=== PATIENT | male | born 1980 | race Caucasian/White ===

== ENCOUNTER 2020-09-25 09:02 | Emergency (ER) | payer MEDICAID, SELFPAY ==
[2020-09-25 09:18] VITALS: BP 124/91; PULSE 112; RESP 14; TEMP 36.3; O2SAT 98; BMI 32.5
--- NOTE | 2020-09-25 09:29 | US_ITS ---
PROCEDURE: US EXTREMITY RT LIMITED CLINICAL INDICATION: golf size nodule COMPARISON: No exams were available for comparison FINDINGS: Ultrasound is performed of the right groin region. There is mild diffuse edema but no focal fluid collections or masses or adenopathy demonstrated. IMPRESSION: No abscess demonstrated. Mild edema in the right groin subcutaneous tissues Dictated by: Uday Graves MD 09/25/2020 09:59 Uday Graves MD in [place] 09/25/2020 09:59
--- NOTE | 2020-09-25 10:03 | HMH.EDUTC ---
[facility] Disposition Clinical Impression: Inguinal lymphadenopathy Disposition: Home, Self-Care Condition on Discharge: Good Instructions: DI for Lymphadenopathy Additional Instructions: Apply warm wet compresses to the affected site three or four times per day for 15 minutes as tolerated. Take the antibiotics as directed. Follow up with your regular doctor in 3 days for a recheck. GO TO THE ER FOR ANY WORSENING SYMPTOMS OR CONCERNS Prescriptions: Doxycycline Hyclate [Doxycycline 100mg Capsule] 100 mg PO Q12 10 Days #20 cap Transmission Status: Received by [facility] Referrals: Provider,Referral, [Primary Care Provider] - Forms: Work/School Release Time of Disposition: 10:07 Medical Decision Making - Medical Records Medical records reviewed: No: I reviewed the patient's medical records. - Tom Inquiry Pt receiving controlled substance: No Vital Signs: 09/25/20 09:18 09/25/20 10:20 Temperature 97.3 F L 98 F Temperature Source Tympanic Pulse Rate 106 H Pulse Rate [Right] 112 H Respiratory Rate 14 17 Blood Pressure 116/85 Blood Pressure [Right Arm] 124/91 H Blood Pressure Mean [Right Arm] 102 Blood Pressure Source [Right Arm] Automatic Cuff Blood Pressure Position [Right Arm] Sitting 02 Sat by Pulse Oximetry 98 - Lab Data Lab Results 09/25/20 10:19: Urine Color [place], Urine Appearance Clear, Urine pH 5.5, Ur Specific [place] 1.015, Urine Protein 1+, Urine Glucose (UA) Negative, Urine Ketones Negative, Urine Blood 2+, Urine Nitrate Negative, Urine Bilirubin 1+ A, Urine Urobilinogen 1, Ur Leukocyte Esterase Negative Orders (Tests/Meds): ORDERS Category Date Time Status US extremity RT limited Stat Exams 09/25/20 09:29 Taken - US Data US Images: Lower Extremity ED US Reviewed: Yes: I have reviewed the patient's US results, I have viewed radiologist's interpretation [facility] HPI - General Stated complaint: Rt hip/leg pain Time Seen by Provider: 09/25/20 10:03 Mode of Arrival: Ambulatory Source of Information: Patient Limitations: No Limitations Description of Symptoms (Recalled from Triage Doc. by RN): pt c/o upper front thigh/ hip pain. 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 pt has a golf ball size nodule that has popped up and is very painful. HEENT Symptoms (Recalled from RN notes): No Resp Symptoms (Recalled from RN notes): No Skin Symptoms (Recalled from RN notes): No MS Symptoms (Recalled from RN notes): Yes (knot on upper front thigh/hip about the size of a golf ball) Functional Status (Recalled from RN notes): na - History of Present Illness Provider Complaint: He states that for the past 5 days he has had a knot on his right groin area. He states the site is painful when he walks or bends over. He denies any fever/chills. He denies any urinary complaints or known std exposure. - Related Data Previous Rx's Medication Instructions Recorded Doxycycline Hyclate [Doxycycline 100 mg PO Q12 10 Days #20 cap 09/25/20 100mg Capsule] Allergies Allergy/AdvReac Type Severity Reaction Status Date / Time No Known Allergies Allergy Verified 09/25/20 09:28 - Worker's Comp Is this a Worker's Comp case?: No [facility] History - Hepatitis A Screen Drug use history?: No High risk sexual behaviors?: No History of sexually transmitted infection?: No Currently employed?: No Childcare worker?: No Do you have indoor plumbing?: Yes Do you have electricity?: Yes Attestation statement:: This patient has been screened for Hepatitis A risk factors. I have reviewed the patient's past medical history: Yes ROS Obtained: Yes All systems reviewed & no additional complaints - Constitutional Constitutional: Denies chills, Denies fever(s) - Eyes Eyes: Reports system reviewed and no additional complaints, except as docu - ENT Ears, Nose, Mouth, and Throat: Denies sore throat - Cardiovascular Cardiovascular: Denies chest pain - Respiratory
[2020-09-25 10:20] VITALS: BP 116/85; PULSE 106; RESP 17; TEMP 36.6
[2020-09-25 10:23] LABS: Apearance,Urine Clear (Clear); Color,Urine Orange (Yellow); PH,Urine 5.5 (5.0-8.5); Specific Gravity, Urine 1.015 (1.005-1.030)
[2020-09-25 10:24] LABS: Bilirubin,Urine 1+ (Negative); Blood, Urine 2+ (Negative); Glucose,Urine (UA) Negative (Negative); Ketones,Urine Negative (Negative); Protein,Urine 1+ (Negative)
[2020-09-25 10:25] LABS: UTC Leukocyte Esterase,Urine Negative (Negative); UTC Nitrate,Urine Negative (Negative); Urobilinogen,Urine 1 EU/dl (0.2)
== END 2020-09-25 10:26 | disposition home or self-care (01) ==
PROVIDERS: Emergency Provider Nurse Practitioner Family
DX: R22.31 Localized swelling, mass and lump, right upper limb (principal)
CPT/HCPCS: 76882; 81003; 87086; 87491; 87591; 99202; 99212; G0463

== ENCOUNTER 2020-09-28 15:03 | Inpatient (IN) | payer MEDICAID, SELFPAY ==
--- NOTE | 2020-09-28 15:08 | CT_ITS ---
PROCEDURE: CT ABDOMEN PELVIS W CON CLINICAL INDICATION: right groin abscess/mass- extends down right thigh COMPARISON: US US EXTREMITY RT LIMITED from 09/25/2020 TECHNIQUE: IV Contrast: 75ML Isovue 370 Oral Contrast None Axial images obtained with sagittal and coronal reformats. All CT scans at the facility use one or more dose reduction, viz: automated exposure control, ma/kV adjustment per patient size (including targeted exams where dose is matched to indication, i.e. head), or iterative reconstruction technique. FINDINGS: LOWER THORAX: Minimal pleural thickening in the left lung base posterior laterally ABDOMEN & PELVIS: 15 mm gallstone present. No focal liver lesion is evident. The spleen and adrenal glands and pancreas have an unremarkable appearance. No renal or ureteral calculi. No hydronephrosis. No intestinal obstruction or free air. Unremarkable appendix. There is diffuse somewhat heterogeneous increase in soft tissue density in the right inguinal region within the subcutaneous tissues. This is anteromedial to the sartorius muscle and measures 6 cm transverse, 5 cm AP, and extends cephalad caudad for length of approximately 9 cm. The margins are somewhat ill-defined. A well-formed capsule around this lesion is not present by CT criteria. There are few small lymph nodes along the lower margin of this lesion. This does not appear to have yet developed into a well-formed abscess. No gas is evident within the collection. There is some stranding of the subcutaneous soft tissues lateral to this area. This does not extend into the intra-abdominal region. IMPRESSION: 1. Abnormal soft tissue density in the right inguinal region consistent with cellulitis and phlegmonous changes and suspected early abscess development. A well-formed abscess is not yet apparent. There are some small lymph nodes associated with this region 2. Cholelithiasis Dictated by: Uday Graves MD 09/28/2020 16:44 Uday Graves MD in [place] 09/28/2020 16:44
[2020-09-28 15:12] VITALS: BMI 33.2
--- NOTE | 2020-09-28 15:52 | PC.NURSE ---
spoke with dr zacarias regarding surgery consult
--- NOTE | 2020-09-28 16:17 | HMH.HP ---
*Admission Date: 09/28/20 *Chief complaint: right groin pain and swelling *History of present illness: 40 year old male with no significant medical history presented to PCP office to establish care for ED FU on right groin abscess. Reports onset of right groin pain approx 1 weeks ago. States it felt like it was deep like on the bone. In the following days developed redness and swelling of right groin. Seen in the ED on 09/25, UA + blood, otherwise normal, extremity US showed mild tissue swelling no abscess. He was started on doxy and advised to FU with PCP if symptoms worsened. Today, patient reports it keeps getting bigger. + tenderness and pain with ambulation. + erythema. + fevers, states about 101. Denies any loss of appetite, nausea or vomiting. Found to have large approx 8 cm erythematous, warm induration on right groin extending down thigh c/w abscess. Admitted for CT scan, IV antibiotics and surgical consultation. [facility] History I have reviewed the patient's past medical history: Yes *Have you ever received a pneumonia vaccine?: No *Have you received a flu vaccine this season?: No Other Medical History: Reports: Other Other Surgeries: Yes: No Previous Surgery - *Social History Last grade of school completed: High school graduate Smoking Status: Smoker, status unknown Alcohol Intake: never Substance Use Type: unknown Last Used Substance: unknown *Occupational Status:: employed *Travel in the last 8 weeks: None Family Hx:: Cancer, Diabetes Review of Systems - Review of Systems Review of systems:: pertinent systems reviewed and negative unless documented below - Constitutional Reports fever(s) - Integumentary/Breasts Comments: right groin redness/swelling/warmth Meds Home Medications Medication Instructions Recorded Confirmed Type Doxycycline Hyclate [Doxycycline 100 mg PO Q12 10 Days #20 cap 09/25/20 Rx 100mg Capsule] Allergies Allergy/AdvReac Type Severity Reaction Status Date / Time No Known Allergies Allergy Verified 09/25/20 09:28 Exam I & O for Last 24 hours: Intake & Output 09/26/20 09/27/20 09/28/20 09/29/20 11:59 11:59 11:59 11:59 Weight 245 lb Narrative: Alert and oriented x3. RRR. No murmur. No LE edema. No JVD. No cervical LAD. LS clear and equal. ENT exam unremarkable. Abdomen soft and nontender. Normoactive bowel sounds. Right groin with approx 6x8cm erythematous induration, + warmth, erythema extends down medial aspect of thigh approx 6cm, tesicular and penile exam normal. Psych-affect normal. - *Routine HEENT Exam Head: Present: normocephalic Eye: Present: EOMI ENT: Present: mucous membranes moist - *Routine Neck Exam Present: supple - *Routine Respiratory Exam Present: CTA bilaterally - *Routine Cardiovascular Exam Present: RRR - *Routine Abdominal Exam Present: soft - *Routine Rectal Exam Rectal:: other, deferred - *Routine Genitalia Exam Genitalia:: normal male - *Routine Extremities Exam Comments: see above - *Routine Neurological Exam Present: alert, oriented X3 Assessment and Plan (1) Abscess of right groin Status: Acute Category: Medical Code(s): L02.214 - Cutaneous abscess of groin - Assessment and plan all Dx Assessment and Plan for all problems:: [facility] Obtain labs with inflammatory markers, blood cultures, repeat UA/cx due to hematuria on UA earlier this week and CT abd/pelvis. Consult surgery for evaluation. Start Vanc. Oddly, he does not have marked tenderness of the indurated area, will evaluate CT results and treat as indicated.
[2020-09-28 16:19] LABS: Basophils # 0.1 K/mm3 (0-0.2); Basophils % 0.5 % (0.1-2.0); Eosinophils # 0.2 K/mm3 (0.0-0.4); Eosinophils % 0.8 % (0.1-12.0); Hematocrit 43.6 % (42.0-52.0); Hemoglobin 14.8 g/dL (14.1-18.0); Lymphocytes # 2.1 K/mm3 (0.7-4.5); Lymphocytes % 9.5 % (10-50); Mean Corpuscular Hemoglobin 30.4 pg (27.0-31.2); Mean Corpuscular Volume 89.4 fl (80-94); Mean Platelet Volume 7.6 fl (7.4-10.4); Monocytes # 0.9 K/mm3 (0.1-1.0); Monocytes % 4.3 % (1.7-9.3); Neutrophils # 18.3 K/mm3 (1.8-7.8); Neutrophils % 84.8 % (37.0-80.0); Platelet Count 382 K/mm3 (142-424); Red Blood Count 4.88 M/mm3 (4.60-6.20); Red Cell Distribution Width 12.5 % (11.5-17.5); White Blood Count 21.6 K/mm3 (4.8-10.8)
[2020-09-28 16:20] LABS: Chloride 100 mmol/L (98-107); MANUAL DIFFERENTIAL MANUAL DIFFERENTIAL (MANUAL DIFF)
[2020-09-28 16:21] LABS: Potassium 3.8 mmoL/L (3.5-5.1); Sodium 139 mmol/L (136-145)
[2020-09-28 16:23] LABS: Alanine Aminotransferase 61 U/L (12-78); Albumin Level 4.2 g/dl (3.5-5.0); Albumin/Globulin Ratio 1.1 (1.1-1.8); Alkaline Phosphatase 202 U/L (38-126); Anion Gap 16.8 mEq/L (5-15); Aspartate Amino Transferase 32 U/L (17-59); Bilirubin,Total 0.9 mg/dl (0.2-1.3); Blood Urea Nitrogen 20 mg/dl (9-20); Calcium 9.9 mg/dl (8.4-10.2); Carbon Dioxide 26 mmol/L (22.0-30.0); Creatinine Clearance Estimated 156 mL/min (50-200); Estimated Glomerular Filt Rate 83 ml/min (>60); GFR (African American) 101 ML/MIN (>60); Glucose 108 mg/dl (74-100); Total Protein,Serum 8.2 g/dl (6.3-8.2)
[2020-09-28 16:29] LABS: C-Reactive Protein 185.7 mg/L (0-4)
--- NOTE | 2020-09-28 16:34 | PC.NURSE ---
Pt arrived to the floor at this time.
[2020-09-28 16:38] LABS: Eosinophils % 1 % (0-3); Lymphocytes % 9 % (10-50); Monocytes % 10 % (2-9); Neutrophils % 75 % (42-76); Platelet Estimate Normal; RBC Morphology Normal; Total Cells Counted 100
[2020-09-28 16:42] LABS: Erythrocyte Sedimentation Rate 14 mm/hr (0-15)
--- NOTE | 2020-09-28 16:46 | HMH.PHACONS ---
- Pharmacy Consult Date: 09/28/20 Time: 16:46 Referring provider: DR. FARRAR Reason for Consult:: VANCOMYCIN DOSING Allergies and ADEs:: Allergies Allergy/AdvReac Type Severity Reaction Status Date / Time No Known Allergies Allergy Verified 09/25/20 09:28 Home Medications:: Home Medications Medication Instructions Recorded Confirmed Type Doxycycline Hyclate [Doxycycline 100 mg PO Q12 10 Days #20 cap 09/25/20 Rx 100mg Capsule] Height: 1.83 m Weight: 111.13 kg Laboratory Results:: Laboratory Results - last 24 hr 09/28/20 16:05: WBC 21.6 H*, RBC 4.88, Hgb 14.8, Hct 43.6, MCV 89.4, MCH 30.4, MCHC 34.0, RDW 12.5, Plt Count 382, MPV 7.6, Neut % (Auto) 84.8 H, Lymph % (Auto) 9.5 L, [place] % (Auto) 4.3, Eos % (Auto) 0.8, Baso % (Auto) 0.5, Neut # (Auto) 18.3 H, Lymph # (Auto) 2.1, [place] # (Auto) 0.9, Eos # (Auto) 0.2, Baso # (Auto) 0.1, Total Counted 100, Neutrophils % (Manual) 75, Band Neutrophils % 2.0, Lymphocytes % (Manual) 9 L, Monocytes % (Manual) 10 H, Eosinophils % (Manual) 1, Metamyelocytes % 3.0 H, Platelet Estimate Normal, RBC Morphology Normal 09/28/20 16:05: Sodium 139, Potassium 3.8, Chloride 100, Carbon Dioxide 26, Anion Gap 16.8 H, BUN 20, Creatinine 1.00, Estimated Creat Clear 156, Estimated GFR 83, Est GFR ( Amer) 101, Glucose 108 H, Calcium 9.9, Total Bilirubin 0.9, AST 32, ALT 61, Alkaline Phosphatase 202 H, Total Protein 8.2, Albumin 4.2, Globulin 4.0 H, Albumin/Globulin Ratio 1.1 09/28/20 16:05: ESR 14 09/28/20 16:05: C-Reactive Protein 185.7 H Assessment and Plan - Assessment and plan all Dx Assessment and Plan for all problems:: BASED ON PATIENT FACTORS, RECOMMEND VANCOMYCIN 2250 MG IV Q12H. PHARMACY WILL FOLLOW DAILY AND ADJUST APPROPRIATE.
[2020-09-28 17:55] VITALS: BP 118/58; PULSE 90; RESP 18; TEMP 37.3; O2SAT 99; BMI 32.8
[2020-09-28 18:30] VITALS: PULSE 90; O2SAT 99
[2020-09-28 20:00] VITALS: BP 114/55; PULSE 89; RESP 16; TEMP 37.4; O2SAT 98
--- NOTE | 2020-09-28 20:26 | HMH.GSCON ---
*Admission Date: 09/28/20 *Reason for consult:: Right groin abscess *History of present illness: This is a 40-year-old gentleman seen in consultation from the service of Dr. Montague for evaluation regarding a right groin abscess. Please see HPI from admission history and physical forwarded below. Forwarded from admission history and physical: 40 year old male with no significant medical history presented to PCP office to establish care for ED FU on right groin abscess. Reports onset of right groin pain approx 1 weeks ago. States it felt like it was deep like on the bone. In the following days developed redness and swelling of right groin. Seen in the ED on 09/25, UA + blood, otherwise normal, extremity US showed mild tissue swelling no abscess. He was started on doxy and advised to FU with PCP if symptoms worsened. Today, patient reports it keeps getting bigger. + tenderness and pain with ambulation. + erythema. + fevers, states about 101. Denies any loss of appetite, nausea or vomiting. Found to have large approx 8 cm erythematous, warm induration on right groin extending down thigh c/w abscess. Admitted for CT scan, IV antibiotics and surgical consultation. Review of Systems - Constitutional Denies chills - Eyes Denies change in vision - ENT Denies difficulty swallowing - *Cardiovascular Denies chest pain - *Respiratory Denies cough - *Gastrointestinal Denies abdominal pain - *Genitourinary Denies blood in urine - *Musculoskeletal Denies muscle weakness - Integumentary/Breasts Reports new lesions - *Neurologic Denies dizziness - Psychiatric Denies anxiety - Endocrine Denies cold intolerance - Hematologic/Lymphatic Denies easy bleeding - Allergic/Immunologic Denies hives [facility] History *Have you ever received a pneumonia vaccine?: No *Have you received a flu vaccine this season?: No Other Medical History: Reports: Other Other Surgeries: Yes: No Previous Surgery - *Social History Last grade of school completed: High school graduate Smoking Status: Smoker, status unknown Alcohol Intake: never Substance Use Type: unknown Last Used Substance: unknown *Occupational Status:: employed *Travel in the last 8 weeks: None Family Hx:: Cancer, Diabetes Meds Home Medications Medication Instructions Recorded Confirmed Type Doxycycline Hyclate [Doxycycline 100 mg PO Q12 10 Days #20 cap 09/25/20 Rx 100mg Capsule] Allergies Allergy/AdvReac Type Severity Reaction Status Date / Time No Known Allergies Allergy Verified 09/25/20 09:28 Exam Vital signs and Labs for Last 24 Hours: Temp Pulse Resp BP Pulse Ox 99.2 F 90 18 118/58 L 99 09/28/20 17:55 09/28/20 17:55 09/28/20 17:55 09/28/20 17:55 09/28/20 17:55 Laboratory Results - last 24 hr 09/28/20 16:05: WBC 21.6 H*, RBC 4.88, Hgb 14.8, Hct 43.6, MCV 89.4, MCH 30.4, MCHC 34.0, RDW 12.5, Plt Count 382, MPV 7.6, Neut % (Auto) 84.8 H, Lymph % (Auto) 9.5 L, [place] % (Auto) 4.3, Eos % (Auto) 0.8, Baso % (Auto) 0.5, Neut # (Auto) 18.3 H, Lymph # (Auto) 2.1, [place] # (Auto) 0.9, Eos # (Auto) 0.2, Baso # (Auto) 0.1, Total Counted 100, Neutrophils % (Manual) 75, Band Neutrophils % 2.0, Lymphocytes % (Manual) 9 L, Monocytes % (Manual) 10 H, Eosinophils % (Manual) 1, Metamyelocytes % 3.0 H, Platelet Estimate Normal, RBC Morphology Normal 09/28/20 16:05: Sodium 139, Potassium 3.8, Chloride 100, Carbon Dioxide 26, Anion Gap 16.8 H, BUN 20, Creatinine 1.00, Estimated Creat Clear 156, Estimated GFR 83, Est GFR ( Amer) 101, Glucose 108 H, Calcium 9.9, Total Bilirubin 0.9, AST 32, ALT 61, Alkaline Phosphatase 202 H, Total Protein 8.2, Albumin 4.2, Globulin 4.0 H, Albumin/Globulin Ratio 1.1 09/28/20 16:05: ESR 14 09/28/20 16:05: C-Reactive Protein 185.7 H I & O for Last 24 hours: Intake & Output 09/26/20 09/27/20 09/28/20 09/29/20 11:59 11:59 11:59 11:59 Intake Total 0 / 0 Balance 0 / 0 Weight 242 lb 5 oz - C
[2020-09-29] VITALS (20 sets, daily range): BP systolic 106–143; BP diastolic 57–76; PULSE 50–77; RESP 16–18; TEMP 36.7–37.7; O2SAT 92–99; BMI 32.9
[2020-09-29 00:17] LABS: Microscopic,Cath URINE MICROSCOPIC (MICROSCOPIC)
[2020-09-29 00:22] LABS: Appearance,Urine/Cath CLEAR (Clear); Blood, Urine/Cath TRACE-I (Negative); Color,Urine/Cath YELLOW (Yellow); Glucose,Urine/Cath (UA) Negative (Negative); Ketones,Urine/Cath Negative (Negative); Leukocyte Esterase,Cath Negative (Negative); Nitrate,Cath Negative (Negative); PH,Urine/Cath 5.5 (5.0-8.5); Protein,Urine/Cath TRACE (Negative); Specific Gravity, Urine/Cath >= 1.030 (1.005-1.030)
[2020-09-29 00:38] LABS: Bilirubin,Cath Negative (Negative)
[2020-09-29 00:43] LABS: Bacteria,Urine/Cath TRACE /lpf; RBC,Urine/Cath Occasional # /hpf (0-3); WBC,Urine/Cath Occasional #/hpf (0-3)
--- NOTE | 2020-09-29 04:46 | PC.NURSE ---
Patient alert and oriented times 4. Patient found sleep difficult this shift. Patient states i slept about and hour . Patient did not have any issues with pain and did not request any pain medication. Patient has been administered ABx X 3. Patient is scheduled for I and D Right groin 09/30/2019. Consents signed. Patient in no acute distress, will continue to monitor.
--- NOTE | 2020-09-29 06:31 | PC.NURSE ---
Pt went to Surgery at 0630 accompanied by ANSHUL Sibley. Pt VSS and no acute distress.
--- NOTE | 2020-09-29 06:52 | P.PN_ITS ---
Subjective Patient reports: no new complaints Progress Note: A&P (1) Abscess of right groin Status: Acute Assessment and plan: Continue antibiotics as per primary service Incision and drainage/debridement this morning Exam Vital signs and Labs for Last 24 Hours: Temp Pulse Resp BP Pulse Ox 99.9 F H 70 16 116/57 L 92 L 09/29/20 03:42 09/29/20 03:42 09/29/20 03:42 09/29/20 03:42 09/29/20 03:42 Laboratory Results - last 24 hr 09/28/20 16:05: WBC 21.6 H*, RBC 4.88, Hgb 14.8, Hct 43.6, MCV 89.4, MCH 30.4, MCHC 34.0, RDW 12.5, Plt Count 382, MPV 7.6, Neut % (Auto) 84.8 H, Lymph % (Auto) 9.5 L, [place] % (Auto) 4.3, Eos % (Auto) 0.8, Baso % (Auto) 0.5, Neut # (Auto) 18.3 H, Lymph # (Auto) 2.1, [place] # (Auto) 0.9, Eos # (Auto) 0.2, Baso # (Auto) 0.1, Total Counted 100, Neutrophils % (Manual) 75, Band Neutrophils % 2.0, Lymphocytes % (Manual) 9 L, Monocytes % (Manual) 10 H, Eosinophils % (Manual) 1, Metamyelocytes % 3.0 H, Platelet Estimate Normal, RBC Morphology Normal 09/28/20 16:05: Sodium 139, Potassium 3.8, Chloride 100, Carbon Dioxide 26, Anion Gap 16.8 H, BUN 20, Creatinine 1.00, Estimated Creat Clear 156, Estimated GFR 83, Est GFR ( Amer) 101, Glucose 108 H, Calcium 9.9, Total Bilirubin 0.9, AST 32, ALT 61, Alkaline Phosphatase 202 H, Total Protein 8.2, Albumin 4.2, Globulin 4.0 H, Albumin/Globulin Ratio 1.1 09/28/20 16:05: ESR 14 09/28/20 16:05: C-Reactive Protein 185.7 H 09/29/20 00:03: Urine Color Yellow, Urine Appearance Clear, Urine pH 5.5, Ur Specific [place] >= 1.030, Urine Protein Trace, Urine Glucose (UA) Negative, Urine Ketones Negative, Urine Blood Trace-i, Urine Nitrate Negative, Urine Bilirubin Negative, Urine Urobilinogen 1.0, Ur Leukocyte Esterase Negative, Urine RBC Occasional, Urine WBC Occasional, Urine Bacteria Trace I & O for Last 24 hours: Intake & Output 09/26/20 09/27/20 09/28/20 09/29/20 11:59 11:59 11:59 11:59 Intake Total 775 / 775 Balance 775 / 775 Weight 243 lb 1 oz Microbiology Reports for the Last 24 Hours: Microbiology 09/28/20 17:40 Nasopharyngeal Coronavirus COVID-19 PCR - Final - Constitutional no acute distress - *Routine Respiratory Exam Absent: respiratory distress - *Routine Cardiovascular Exam Present: RRR - *Routine Skin Exam Comments: Unchanged right groin abscess
--- NOTE | 2020-09-29 06:59 | HMH.ANESCL ---
[facility] Anesthesia Checklist - Structural Data Admitted From: Inpatient Planned Operative Procedure/s: i/d groin abcess Consent for Planned Operative Procedure(s) Verified: Yes - Airway Assessment C-Spine Mobility Assessed: Yes TMJ Mobility Assessed: Yes Dentition: Good Dentition - Neurological Assessment Level of Consciousness: Awake, Alert, Appropriate - Anesthesia Plan Anesthesia Risk discussed: Yes Anesthesia Plan: Verified ASA Class: II Anesthesia Type: General [facility] History I have reviewed the patient's past medical history: Yes *Have you ever received a pneumonia vaccine?: No *Have you received a flu vaccine this season?: No Other Medical History: Reports: Other Anesthesia experience/problems:: none Other Surgeries: Yes: No Previous Surgery - *Social History Last grade of school completed: High school graduate Smoking Status: Smoker, status unknown Alcohol Intake: never Substance Use Type: unknown Last Used Substance: unknown *Occupational Status:: employed *Travel in the last 8 weeks: None Family Hx:: Cancer, Diabetes
--- NOTE | 2020-09-29 07:25 | P.OP_ITS ---
Date of procedure: 09/29/20 Pre-op Diagnosis:: Right groin abscess Post-op Diagnosis:: Same Procedure performed:: Incision and drainage of right groin abscess Surgeon:: Lui Cano MD INTERIOR DESIGN CONSULTANT:: Roderick Dominguez Anesthesia: LMA Estimated blood loss (mL): 10 Operative findings:: Large pocket of purulence Fluid obtained for Gram stain/culture Operative note:: After informed consent was obtained the patient was taken to the operating room and placed in the supine position. General anesthesia with laryngeal mask airway was achieved. His right groin was prepped and draped in a sterile fashion. An elliptical incision was made overlying the central portion of the abscess. The deep subcutaneous tissue was dissected with electrocautery. A fairly large cavity was encountered in the deep subcutaneous tissue. Fluid was obtained for Gram stain/culture. The fluid was fairly isolated. Moistened Kerlix was utilized to pack the wound. The Kerlix was then infiltrated with 1% lidocaine. Dressings were applied and the patient was transferred to recovery in stable condition after removal of his laryngeal mask airway. Condition: stable Disposition: PACU Specimens:: Fluid for Gram stain/culture Complications:: No immediate
--- NOTE | 2020-09-29 07:31 | HMH.ANESI ---
[facility] Anesthesia Record Part I Intake, IV Amount: 300 Estimated blood loss (mL): 5 Urine output (mL): 0 Blood Pressure: 143/76 SaO2: 92 Pulse Rate: 71 Respiratory Rate: 16 Temperature: 99.8 F Patient is:: Drowsy, Stable Stable to PACU at:: 07:30
--- NOTE | 2020-09-29 07:58 | P.CONPHA_ITS ---
[facility] Pharmacy VTE Monitoring - Patient Demographics Admission date: 09/28/20 Report Date: 09/29/20 Time: 07:58 Allergies/Adverse Reactions: Patient Allergies No Known Allergies Allergy (Verified 09/25/20 09:28) Height: 1.83 m Weight: 110.251 kg Patient Problems: Current Active Problems Abscess of right groin (Acute) - VTE Risk Labs: VTE Related Lab Results Hgb 14.8 g/dL (14.1-18.0) 09/28/20 16:05 Hct 43.6 % (42.0-52.0) 09/28/20 16:05 Plt Count 382 K/mm3 (142-424) 09/28/20 16:05 BUN 20 mg/dl (9-20) 09/28/20 16:05 Creatinine 1.00 mg/dl (0.66-1.25) 09/28/20 16:05 Estimated Creat Clear 156 mL/min (50-200) 09/28/20 16:05 Was VTE Risk Assessment Performed: Yes VTE Score: 0 VTE Risk Level: Very Low Risk - Prophylaxis VTE Prophylaxis Ordered?: Yes Types of VTE Prophylaxis: TEDS Knee High Location of Applied Device: Bilateral Lower Extremeties
--- NOTE | 2020-09-29 07:58 | HMH.PHAINT ---
MEDICATION RECONCILIATION COMPLETED ON PATIENT USING EXTERNAL FILL HISTORY FROM PHARMACY. -LONG MERCADO, THONGD
--- NOTE | 2020-09-29 08:54 | HMH.ACPN2 ---
Internal Medicine - PN: Subj *Date: 09/29/20 *Time: 08:54 Interval history: Patient taken for surgery this morning. Tolerated procedure well a little groggy but pleasant on exam after procedure. Afebrile this morning, hemodynamically stable. No nausea or vomiting. Complains of some burning discomfort in right groin. Exam Vital signs and Labs for Last 24 Hours: Temp Pulse Resp BP Pulse Ox 98.3 F 77 18 132/62 93 L 09/29/20 07:50 09/29/20 07:50 09/29/20 07:50 09/29/20 07:50 09/29/20 07:50 Laboratory Results - last 24 hr 09/28/20 16:05: WBC 21.6 H*, RBC 4.88, Hgb 14.8, Hct 43.6, MCV 89.4, MCH 30.4, MCHC 34.0, RDW 12.5, Plt Count 382, MPV 7.6, Neut % (Auto) 84.8 H, Lymph % (Auto) 9.5 L, [place] % (Auto) 4.3, Eos % (Auto) 0.8, Baso % (Auto) 0.5, Neut # (Auto) 18.3 H, Lymph # (Auto) 2.1, [place] # (Auto) 0.9, Eos # (Auto) 0.2, Baso # (Auto) 0.1, Total Counted 100, Neutrophils % (Manual) 75, Band Neutrophils % 2.0, Lymphocytes % (Manual) 9 L, Monocytes % (Manual) 10 H, Eosinophils % (Manual) 1, Metamyelocytes % 3.0 H, Platelet Estimate Normal, RBC Morphology Normal 09/28/20 16:05: Sodium 139, Potassium 3.8, Chloride 100, Carbon Dioxide 26, Anion Gap 16.8 H, BUN 20, Creatinine 1.00, Estimated Creat Clear 156, Estimated GFR 83, Est GFR ( Amer) 101, Glucose 108 H, Calcium 9.9, Total Bilirubin 0.9, AST 32, ALT 61, Alkaline Phosphatase 202 H, Total Protein 8.2, Albumin 4.2, Globulin 4.0 H, Albumin/Globulin Ratio 1.1 09/28/20 16:05: ESR 14 09/28/20 16:05: C-Reactive Protein 185.7 H 09/29/20 00:03: Urine Color Yellow, Urine Appearance Clear, Urine pH 5.5, Ur Specific [place] >= 1.030, Urine Protein Trace, Urine Glucose (UA) Negative, Urine Ketones Negative, Urine Blood Trace-i, Urine Nitrate Negative, Urine Bilirubin Negative, Urine Urobilinogen 1.0, Ur Leukocyte Esterase Negative, Urine RBC Occasional, Urine WBC Occasional, Urine Bacteria Trace I & O for Last 24 hours: Intake & Output 09/26/20 09/27/20 09/28/20 09/29/20 23:59 23:59 23:59 23:59 Intake Total 0 / 0 1075 / 1075 Balance 0 / 0 1075 / 1075 Weight 109.911 kg 110.251 kg Microbiology Reports for the Last 24 Hours: Microbiology 09/28/20 17:40 Nasopharyngeal Coronavirus COVID-19 PCR - Final - Constitutional no acute distress - *Routine HEENT Exam Head: Present: normocephalic Eye: Present: EOMI, PERRL ENT: Present: mucous membranes moist - *Routine Neck Exam Present: supple. Absent: lymphadenopathy - *Routine Respiratory Exam Present: CTA bilaterally - *Routine Cardiovascular Exam Present: RRR - *Routine Abdominal Exam Present: soft, normoactive bowel sounds. Absent: tenderness - *Routine Rectal Exam Comments: Deferred - *Routine Exam Patient deferred: groin exam (Right groin with surgical dressing in place, clean dry and intact. No active bleeding. Mildly tender.) - *Routine Extremities Exam Absent: cyanosis, clubbing, edema - *Routine Skin Exam Present: warm. Absent: rash - *Routine Neurological Exam Present: alert, oriented X3 Assessment and Plan (1) Abscess of right groin Status: Acute Category: Medical Code(s): L02.214 - Cutaneous abscess of groin (2) Class 1 obesity Status: Chronic Category: Medical Code(s): E66.9 - Obesity, unspecified Complicates all aspects of his care - Assessment and plan all Dx Assessment and Plan for all problems:: 40-year-old male with no significant past medical history. Class I obesity. Presented with right groin abscess. Taken for surgical intervention this morning, status post I&D. Continue IV antibiotics for at least another 24 hours. Surgery consulted, appreciate their recommendations. Plan to formalize outpatient antibiotic plan, wound care, dressing changes in the coming days. Continues to require inpatient management.
--- NOTE | 2020-09-29 09:34 | HMH.ANESII ---
[facility] Anesthesia Record Part II Discharge Time: 07:50 Destination: Medical Surgical Department PACU nurse assessment reviewed?: Yes Patient Condition:: Good Anesthesia Complications:: None Swallowing reflex intact?: Yes Cyanosis?: No Blood Pressure: 132/62 Pulse Rate: 77 Temperature: 98.3 F Mental Status: Alert & Oriented Pain level:: 0 Nausea and/or vomitting:: None Intake, IV Amount: 0
--- NOTE | 2020-09-29 19:40 | PC.NURSE ---
PATIENT A&O X4, LUNGS ARE CLEAR, PULSES ARE EQUAL. DURING SHIFT CHANGE, INCISION SITE WAS CHECKED BY THIS RN AND SAMANTHA LANDERS. NO CHANGES FROM PREVIOUS ASSESSMENT. PATIENT AMBULATED TO RESTROOM, TOLERATED WELL. NO PAIN REPORTED.
[2020-09-29 23:30] LABS: Vancomycin,Trough 10.1 ug/mL (5.0-10.0)
[2020-09-30] VITALS: BP 117/56; PULSE 61; RESP 16; TEMP 36.7; O2SAT 99
[2020-09-30 04:00] VITALS: BP 137/76; PULSE 78; RESP 16; TEMP 36.4; O2SAT 98; BMI 33.3
[2020-09-30 07:13] LABS: Alanine Aminotransferase 41 U/L (12-78); Albumin Level 3.5 g/dl (3.5-5.0); Albumin/Globulin Ratio 1.1 (1.1-1.8); Alkaline Phosphatase 144 U/L (38-126); Anion Gap 9.1 mEq/L (5-15); Aspartate Amino Transferase 28 U/L (17-59); Bilirubin,Total 0.4 mg/dl (0.2-1.3); Blood Urea Nitrogen 16 mg/dl (9-20); Calcium 9.2 mg/dl (8.4-10.2); Carbon Dioxide 31 mmol/L (22.0-30.0); Chloride 104 mmol/L (98-107); Creatinine Clearance Estimated 142 mL/min (50-200); Estimated Glomerular Filt Rate 75 ml/min (>60); GFR (African American) 90 ML/MIN (>60); Globulin 3.3 g/dL (1.3-3.2); Glucose 129 mg/dl (74-100); Potassium 4.1 mmoL/L (3.5-5.1); Sodium 140 mmol/L (136-145); Total Protein,Serum 6.8 g/dl (6.3-8.2)
--- NOTE | 2020-09-30 07:45 | HMH.GSPN ---
Subjective Narrative: Patient is without complaints. Still has a large dressing in place. Progress Note: A&P (1) Abscess of right groin Status: Acute (2) Class 1 obesity Status: Chronic Assessment and Plan for All Diagnoses:: Dressing change performed at bedside. Some necrosis and induration. Continue IV antibiotics, cultures pending. Exam Vital signs and Labs for Last 24 Hours: Temp Pulse Resp BP Pulse Ox 97.6 F 78 16 137/76 98 09/30/20 04:00 09/30/20 04:00 09/30/20 04:00 09/30/20 04:00 09/30/20 04:00 Laboratory Results - last 24 hr 09/29/20 22:50: Vancomycin Trough 10.1 H 09/30/20 06:30: Sodium 140, Potassium 4.1, Chloride 104, Carbon Dioxide 31 H, Anion Gap 9.1, BUN 16, Creatinine 1.10, Estimated Creat Clear 142, Estimated GFR 75, Est GFR ( Amer) 90, Glucose 129 H, Calcium 9.2, Total Bilirubin 0.4, AST 28, ALT 41 D, Alkaline Phosphatase 144 H, Total Protein 6.8, Albumin 3.5, Globulin 3.3 H, Albumin/Globulin Ratio 1.1 I & O for Last 24 hours: Intake & Output 09/27/20 09/28/20 09/29/20 09/30/20 11:59 11:59 11:59 11:59 Intake Total 1075 / 1075 1350 / 1350 Balance 1075 / 1075 1350 / 1350 Weight 243 lb 1 oz 246 lb 2 oz Microbiology Reports for the Last 24 Hours: Microbiology 09/29/20 07:20 Groin - Abscess Gram Stain - Final 09/29/20 07:20 Groin - Abscess Abscess Culture - Preliminary 09/29/20 00:03 Urine,Clean Catch Urine Culture - Preliminary NO GROWTH AFTER 24 HOURS - *Routine Skin Exam Comments: Some surrounding erythema, cellulitis, and induration. Wound with some necrosis but no purulence.
[2020-09-30 08:00] VITALS: BP 117/65; PULSE 72; RESP 18; TEMP 36.7; O2SAT 97
--- NOTE | 2020-09-30 11:45 | HMH.ACPN2 ---
Internal Medicine - PN: Subj *Date: 09/30/20 *Time: 11:45 Interval history: Patient had no issues overnight. Continues to have drainage from right inguinal wound. Surgery saw him this morning and wants to continue wound care/dressing changes. Tolerating antibiotics without side effect. Tolerating p.o. intake. Afebrile, hemodynamically stable. Pain managed on current regimen. No shortness of breath, chest pain, nausea or vomiting. Exam Vital signs and Labs for Last 24 Hours: Temp Pulse Resp BP Pulse Ox 98.0 F 72 18 117/65 97 09/30/20 08:00 09/30/20 08:00 09/30/20 08:00 09/30/20 08:00 09/30/20 08:00 Laboratory Results - last 24 hr 09/29/20 22:50: Vancomycin Trough 10.1 H 09/30/20 06:30: Sodium 140, Potassium 4.1, Chloride 104, Carbon Dioxide 31 H, Anion Gap 9.1, BUN 16, Creatinine 1.10, Estimated Creat Clear 142, Estimated GFR 75, Est GFR ( Amer) 90, Glucose 129 H, Calcium 9.2, Total Bilirubin 0.4, AST 28, ALT 41 D, Alkaline Phosphatase 144 H, Total Protein 6.8, Albumin 3.5, Globulin 3.3 H, Albumin/Globulin Ratio 1.1 I & O for Last 24 hours: Intake & Output 09/27/20 09/28/20 09/29/20 09/30/20 23:59 23:59 23:59 23:59 Intake Total 0 / 0 1675 / 1675 6070 / 6070 Balance 0 / 0 1675 / 1675 6070 / 6070 Weight 109.911 kg 110.251 kg 111.64 kg Microbiology Reports for the Last 24 Hours: Microbiology 09/29/20 07:20 Groin - Abscess Gram Stain - Final 09/29/20 07:20 Groin - Abscess Abscess Culture - Preliminary 09/29/20 00:03 Urine,Clean Catch Urine Culture - Preliminary NO GROWTH AFTER 24 HOURS - Constitutional no acute distress, obese - *Routine HEENT Exam Head: Present: normocephalic Eye: Present: EOMI, PERRL ENT: Present: mucous membranes moist - *Routine Neck Exam Present: supple. Absent: lymphadenopathy - *Routine Respiratory Exam Present: CTA bilaterally - *Routine Cardiovascular Exam Present: RRR - *Routine Abdominal Exam Present: soft, normoactive bowel sounds. Absent: tenderness - *Routine Exam Patient deferred: groin exam (erythema surrounding right inguinal incision, interval improvement, mild tenderness. Dressing CDI) - *Routine Extremities Exam Absent: cyanosis, clubbing, edema - *Routine Skin Exam Present: warm. Absent: rash - *Routine Neurological Exam Present: alert, oriented X3 Assessment and Plan (1) Abscess of right groin Status: Acute Category: Medical Code(s): L02.214 - Cutaneous abscess of groin (2) Class 1 obesity Status: Chronic Category: Medical Code(s): E66.9 - Obesity, unspecified - Assessment and plan all Dx Assessment and Plan for all problems:: 40-year-old male with right inguinal abscess. Status post incision and drainage. Tolerating IV antibiotics well. At this time the wound is still showing moderate erythema and having decent drainage. Continues to require inpatient management for IV antibiotics and awaiting further culture speciation and sensitivities. tolerating PO intake, continue diet as ordered continue current pain control regimen. Labs in the morning
[2020-09-30 15:10] LABS: Basophils # 0.1 K/mm3 (0-0.2); Basophils % 0.7 % (0.1-2.0); Eosinophils # 0.2 K/mm3 (0.0-0.4); Eosinophils % 1.9 % (0.1-12.0); Hematocrit 41.2 % (42.0-52.0); Hemoglobin 13.8 g/dL (14.1-18.0); Lymphocytes # 2.6 K/mm3 (0.7-4.5); Lymphocytes % 19.8 % (10-50); Mean Corpuscular HGB Conc 33.4 g/dL (31.8-35.4); Mean Corpuscular Hemoglobin 29.6 pg (27.0-31.2); Mean Corpuscular Volume 88.7 fl (80-94); Mean Platelet Volume 7.5 fl (7.4-10.4); Monocytes # 0.6 K/mm3 (0.1-1.0); Monocytes % 4.2 % (1.7-9.3); Neutrophils # 9.6 K/mm3 (1.8-7.8); Neutrophils % 73.4 % (37.0-80.0); Platelet Count 357 K/mm3 (142-424); Red Blood Count 4.64 M/mm3 (4.60-6.20); Red Cell Distribution Width 12.6 % (11.5-17.5); White Blood Count 13.1 K/mm3 (4.8-10.8)
[2020-09-30 16:00] VITALS: BP 127/64; PULSE 69; RESP 18; TEMP 36.3; O2SAT 98
[2020-09-30 20:00] VITALS: BP 113/70; PULSE 73; RESP 24; TEMP 36.8; O2SAT 99
[2020-10-01 04:00] VITALS: BP 114/55; PULSE 66; RESP 18; TEMP 36.5; O2SAT 93
--- NOTE | 2020-10-01 04:59 | PC.NURSE ---
Pt resting comfortably in bed and has slept off and on all shift. Vancomycin and Zosyn administered per order. Patient did not request pain medicine this shift. Patient dressing RLE groin area clean, dry and intact. Will continue to monitor for any acute changes.
[2020-10-01 05:00] VITALS: BMI 32.6
--- NOTE | 2020-10-01 07:39 | HMH.GSPN ---
Subjective Narrative: Patient has no new complaints. Progress Note: A&P (1) Abscess of right groin Status: Acute (2) Class 1 obesity Status: Chronic Assessment and Plan for All Diagnoses:: Await cultures. Dressing changes twice daily. Exam Vital signs and Labs for Last 24 Hours: Temp Pulse Resp BP Pulse Ox 97.7 F 66 18 114/55 L 93 L 10/01/20 04:00 10/01/20 04:00 10/01/20 04:00 10/01/20 04:00 10/01/20 04:00 Laboratory Results - last 24 hr 09/30/20 15:05: WBC 13.1 H D, RBC 4.64, Hgb 13.8 L, Hct 41.2 L, MCV 88.7, MCH 29.6, MCHC 33.4, RDW 12.6, Plt Count 357, MPV 7.5, Neut % (Auto) 73.4, Lymph % (Auto) 19.8, [place] % (Auto) 4.2, Eos % (Auto) 1.9, Baso % (Auto) 0.7, Neut # (Auto) 9.6 H, Lymph # (Auto) 2.6, [place] # (Auto) 0.6, Eos # (Auto) 0.2, Baso # (Auto) 0.1 I & O for Last 24 hours: Intake & Output 09/28/20 09/29/20 09/30/20 10/01/20 11:59 11:59 11:59 11:59 Intake Total 1075 / 1075 6670 / 6670 2019 Balance 1075 / 1075 6670 / 6670 2019 Weight 243 lb 1 oz 246 lb 2 oz 241 lb 5 oz Microbiology Reports for the Last 24 Hours: Microbiology 09/29/20 07:20 Groin - Abscess Gram Stain - Final 09/29/20 07:20 Groin - Abscess Abscess Culture - Preliminary 09/29/20 00:03 Urine,Clean Catch Urine Culture - Final NO GROWTH AFTER 48 HOURS 09/28/20 16:05 Blood Blood Culture - Preliminary NO GROWTH AFTER 48 HOURS 09/28/20 16:05 Blood Blood Culture - Preliminary NO GROWTH AFTER 48 HOURS - *Routine Skin Exam Comments: There is slightly less induration to the surrounding tissues. Wound is wheat cleaner with less evidence of necrosis.
[2020-10-01 07:55] LABS: Basophils # 0.1 K/mm3 (0-0.2); Basophils % 0.9 % (0.1-2.0); Eosinophils # 0.3 K/mm3 (0.0-0.4); Hematocrit 41.4 % (42.0-52.0); Hemoglobin 13.6 g/dL (14.1-18.0); Lymphocytes # 1.9 K/mm3 (0.7-4.5); Lymphocytes % 14.4 % (10-50); Mean Corpuscular Hemoglobin 29.3 pg (27.0-31.2); Mean Corpuscular Volume 88.8 fl (80-94); Mean Platelet Volume 7.5 fl (7.4-10.4); Monocytes # 0.8 K/mm3 (0.1-1.0); Monocytes % 5.6 % (1.7-9.3); Neutrophils # 10.3 K/mm3 (1.8-7.8); Neutrophils % 77.1 % (37.0-80.0); Platelet Count 410 K/mm3 (142-424); Red Blood Count 4.66 M/mm3 (4.60-6.20); Red Cell Distribution Width 12.5 % (11.5-17.5); White Blood Count 13.4 K/mm3 (4.8-10.8)
[2020-10-01 07:59] LABS: Alanine Aminotransferase 43 U/L (12-78); Albumin Level 3.5 g/dl (3.5-5.0); Alkaline Phosphatase 138 U/L (38-126); Anion Gap 9.3 mEq/L (5-15); Aspartate Amino Transferase 26 U/L (17-59); Bilirubin,Total 0.4 mg/dl (0.2-1.3); Blood Urea Nitrogen 13 mg/dl (9-20); Calcium 9.2 mg/dl (8.4-10.2); Carbon Dioxide 29 mmol/L (22.0-30.0); Chloride 106 mmol/L (98-107); Creatinine Clearance Estimated 128 mL/min (50-200); Estimated Glomerular Filt Rate 67 ml/min (>60); GFR (African American) 82 ML/MIN (>60); Globulin 3.4 g/dL (1.3-3.2); Glucose 109 mg/dl (74-100); Potassium 4.3 mmoL/L (3.5-5.1); Sodium 140 mmol/L (136-145); Total Protein,Serum 6.9 g/dl (6.3-8.2)
[2020-10-01 08:00] VITALS: BP 129/81; PULSE 58; RESP 17; TEMP 36.7; O2SAT 98
[2020-10-01 08:05] LABS: C-Reactive Protein 54.8 mg/L (0-4)
[2020-10-01 08:17] LABS: Erythrocyte Sedimentation Rate 46 mm/hr (0-15)
--- NOTE | 2020-10-01 11:40 | HMH.ACPN2 ---
Internal Medicine - PN: Subj *Date: 10/01/20 *Time: 11:40 Interval history: Been well this morning. Getting twice daily dressing changes. Continues to have significant drainage from wound however. Erythema and tenderness slowly improving. Denies chest pain, nausea or vomiting, shortness of breath, fever. Having bowel movements. Ambulating with minimal difficulty. Exam Vital signs and Labs for Last 24 Hours: Temp Pulse Resp BP Pulse Ox 98.0 F 58 L 17 129/81 98 10/01/20 08:00 10/01/20 08:00 10/01/20 08:00 10/01/20 08:00 10/01/20 08:00 Laboratory Results - last 24 hr 09/30/20 15:05: WBC 13.1 H D, RBC 4.64, Hgb 13.8 L, Hct 41.2 L, MCV 88.7, MCH 29.6, MCHC 33.4, RDW 12.6, Plt Count 357, MPV 7.5, Neut % (Auto) 73.4, Lymph % (Auto) 19.8, [place] % (Auto) 4.2, Eos % (Auto) 1.9, Baso % (Auto) 0.7, Neut # (Auto) 9.6 H, Lymph # (Auto) 2.6, [place] # (Auto) 0.6, Eos # (Auto) 0.2, Baso # (Auto) 0.1 10/01/20 07:33: WBC 13.4 H, RBC 4.66, Hgb 13.6 L, Hct 41.4 L, MCV 88.8, MCH 29.3, MCHC 33.0, RDW 12.5, Plt Count 410, MPV 7.5, Neut % (Auto) 77.1, Lymph % (Auto) 14.4, [place] % (Auto) 5.6, Eos % (Auto) 2.0, Baso % (Auto) 0.9, Neut # (Auto) 10.3 H, Lymph # (Auto) 1.9, [place] # (Auto) 0.8, Eos # (Auto) 0.3, Baso # (Auto) 0.1, ESR 46 H 10/01/20 07:33: Sodium 140, Potassium 4.3, Chloride 106, Carbon Dioxide 29, Anion Gap 9.3, BUN 13, Creatinine 1.20, Estimated Creat Clear 128, Estimated GFR 67, Est GFR ( Amer) 82, Glucose 109 H, Calcium 9.2, Total Bilirubin 0.4, AST 26, ALT 43, Alkaline Phosphatase 138 H, C-Reactive Protein 54.8 H D, Total Protein 6.9, Albumin 3.5, Globulin 3.4 H, Albumin/Globulin Ratio 1.0 L I & O for Last 24 hours: Intake & Output 09/28/20 09/29/20 09/30/20 10/01/20 23:59 23:59 23:59 23:59 Intake Total 0 / 0 1675 / 1675 6790 / 6790 1300 / 1300 Balance 0 / 0 1675 / 1675 6790 / 6790 1300 / 1300 Weight 109.911 kg 110.251 kg 111.64 kg 109.458 kg Microbiology Reports for the Last 24 Hours: Microbiology 09/29/20 07:20 Groin - Abscess Gram Stain - Final 09/29/20 07:20 Groin - Abscess Abscess Culture - Preliminary 09/29/20 00:03 Urine,Clean Catch Urine Culture - Final NO GROWTH AFTER 48 HOURS 09/28/20 16:05 Blood Blood Culture - Preliminary NO GROWTH AFTER 48 HOURS 09/28/20 16:05 Blood Blood Culture - Preliminary NO GROWTH AFTER 48 HOURS Narrative: - Constitutional no acute distress, obese - *Routine HEENT Exam Head: Present: normocephalic Eye: Present: EOMI, PERRL ENT: Present: mucous membranes moist - *Routine Neck Exam Present: supple. Absent: lymphadenopathy - *Routine Respiratory Exam Present: CTA bilaterally - *Routine Cardiovascular Exam Present: RRR - *Routine Abdominal Exam Present: soft, normoactive bowel sounds. Absent: tenderness - *Routine Exam Patient deferred: groin exam (improvement in erythema surrounding right inguinal incision, nearly resolved. Significant improvement in tenderness, dressing with minimal blood on packing.) - *Routine Extremities Exam Absent: cyanosis, clubbing, edema - *Routine Skin Exam Present: warm. Absent: rash - *Routine Neurological Exam Present: alert, oriented X3 Assessment and Plan (1) Abscess of right groin Status: Acute Category: Medical Code(s): L02.214 - Cutaneous abscess of groin (2) Class 1 obesity Status: Chronic Category: Medical Code(s): E66.9 - Obesity, unspecified - Assessment and plan all Dx Assessment and Plan for all problems:: 40-year-old male with right inguinal abscess. Responding well to IV antibiotics. Continue 24 hours of IV antibiotics and plan for discharge tomorrow with wound care/dressing changes twice daily. Decision for oral antibiotics will be made tomorrow prior to discharge home. Sensitivity and speciation of culture if results will be used to assist in this decision. Contin
--- NOTE | 2020-10-01 12:12 | HMH.PHACONS ---
- Pharmacy Consult Date: 09/30/20 Time: 13:15 Referring provider: DR. FARRAR Reason for Consult:: VANCOMYCIN TROUGH LEVEL Allergies and ADEs:: Allergies Allergy/AdvReac Type Severity Reaction Status Date / Time No Known Allergies Allergy Verified 09/25/20 09:28 Home Medications:: Home Medications Medication Instructions Recorded Confirmed Type Doxycycline Hyclate [Doxycycline 100 mg PO Q12H 09/28/20 09/29/20 History 100mg Capsule] Height: 1.83 m Weight: 109.458 kg Laboratory Results:: Laboratory Results - last 24 hr 09/30/20 15:05: WBC 13.1 H D, RBC 4.64, Hgb 13.8 L, Hct 41.2 L, MCV 88.7, MCH 29.6, MCHC 33.4, RDW 12.6, Plt Count 357, MPV 7.5, Neut % (Auto) 73.4, Lymph % (Auto) 19.8, [place] % (Auto) 4.2, Eos % (Auto) 1.9, Baso % (Auto) 0.7, Neut # (Auto) 9.6 H, Lymph # (Auto) 2.6, [place] # (Auto) 0.6, Eos # (Auto) 0.2, Baso # (Auto) 0.1 10/01/20 07:33: WBC 13.4 H, RBC 4.66, Hgb 13.6 L, Hct 41.4 L, MCV 88.8, MCH 29.3, MCHC 33.0, RDW 12.5, Plt Count 410, MPV 7.5, Neut % (Auto) 77.1, Lymph % (Auto) 14.4, [place] % (Auto) 5.6, Eos % (Auto) 2.0, Baso % (Auto) 0.9, Neut # (Auto) 10.3 H, Lymph # (Auto) 1.9, [place] # (Auto) 0.8, Eos # (Auto) 0.3, Baso # (Auto) 0.1, ESR 46 H 10/01/20 07:33: Sodium 140, Potassium 4.3, Chloride 106, Carbon Dioxide 29, Anion Gap 9.3, BUN 13, Creatinine 1.20, Estimated Creat Clear 128, Estimated GFR 67, Est GFR ( Amer) 82, Glucose 109 H, Calcium 9.2, Total Bilirubin 0.4, AST 26, ALT 43, Alkaline Phosphatase 138 H, C-Reactive Protein 54.8 H D, Total Protein 6.9, Albumin 3.5, Globulin 3.4 H, Albumin/Globulin Ratio 1.0 L Assessment and Plan (1) Abscess of right groin Status: Acute Category: Medical Code(s): L02.214 - Cutaneous abscess of groin (2) Class 1 obesity Status: Chronic Category: Medical Code(s): E66.9 - Obesity, unspecified - Assessment and plan all Dx Assessment and Plan for all problems:: RECOMMENDED PATIENT CONTINUE WITH VANCOMYCIN 2250 MG Q12H AT THIS TIME.
--- NOTE | 2020-10-01 12:37 | HMH.ACPN ---
Internal Medicine - PN: Subj *Date: 10/01/20 *Time: 12:37 Exam Vital signs and Labs for Last 24 Hours: Temp Pulse Resp BP Pulse Ox 98.0 F 58 L 17 129/81 98 10/01/20 08:00 10/01/20 08:00 10/01/20 08:00 10/01/20 08:00 10/01/20 08:00 Laboratory Results - last 24 hr 09/30/20 15:05: WBC 13.1 H D, RBC 4.64, Hgb 13.8 L, Hct 41.2 L, MCV 88.7, MCH 29.6, MCHC 33.4, RDW 12.6, Plt Count 357, MPV 7.5, Neut % (Auto) 73.4, Lymph % (Auto) 19.8, [place] % (Auto) 4.2, Eos % (Auto) 1.9, Baso % (Auto) 0.7, Neut # (Auto) 9.6 H, Lymph # (Auto) 2.6, [place] # (Auto) 0.6, Eos # (Auto) 0.2, Baso # (Auto) 0.1 10/01/20 07:33: WBC 13.4 H, RBC 4.66, Hgb 13.6 L, Hct 41.4 L, MCV 88.8, MCH 29.3, MCHC 33.0, RDW 12.5, Plt Count 410, MPV 7.5, Neut % (Auto) 77.1, Lymph % (Auto) 14.4, [place] % (Auto) 5.6, Eos % (Auto) 2.0, Baso % (Auto) 0.9, Neut # (Auto) 10.3 H, Lymph # (Auto) 1.9, [place] # (Auto) 0.8, Eos # (Auto) 0.3, Baso # (Auto) 0.1, ESR 46 H 10/01/20 07:33: Sodium 140, Potassium 4.3, Chloride 106, Carbon Dioxide 29, Anion Gap 9.3, BUN 13, Creatinine 1.20, Estimated Creat Clear 128, Estimated GFR 67, Est GFR ( Amer) 82, Glucose 109 H, Calcium 9.2, Total Bilirubin 0.4, AST 26, ALT 43, Alkaline Phosphatase 138 H, C-Reactive Protein 54.8 H D, Total Protein 6.9, Albumin 3.5, Globulin 3.4 H, Albumin/Globulin Ratio 1.0 L I & O for Last 24 hours: Intake & Output 09/28/20 09/29/20 09/30/20 10/01/20 23:59 23:59 23:59 23:59 Intake Total 0 / 0 1675 / 1675 6790 / 6790 1300 / 1300 Balance 0 / 0 1675 / 1675 6790 / 6790 1300 / 1300 Weight 109.911 kg 110.251 kg 111.64 kg 109.458 kg Microbiology Reports for the Last 24 Hours: Microbiology 09/29/20 07:20 Groin - Abscess Gram Stain - Final 09/29/20 07:20 Groin - Abscess Abscess Culture - Preliminary 09/29/20 00:03 Urine,Clean Catch Urine Culture - Final NO GROWTH AFTER 48 HOURS 09/28/20 16:05 Blood Blood Culture - Preliminary NO GROWTH AFTER 48 HOURS 09/28/20 16:05 Blood Blood Culture - Preliminary NO GROWTH AFTER 48 HOURS Assessment and Plan (1) Abscess of right groin Status: Acute Category: Medical Code(s): L02.214 - Cutaneous abscess of groin (2) Class 1 obesity Status: Chronic Category: Medical Code(s): E66.9 - Obesity, unspecified The patient's infection will respond to the chosen ABx?: Yes Is the patient receiving the right drug, dose, and route?: Yes Could a more targeted ABx be ordered?: Yes (GRAM + COCCI IN CLUSTERS CONTINUE CURRENT ABX.)
[2020-10-01 15:57] VITALS: BP 138/79; PULSE 58; RESP 18; TEMP 37; O2SAT 97
--- NOTE | 2020-10-01 16:58 | PC.NURSE ---
Pt alert and oriented and able to make needs known. RR even and unlabored. Pt's dsg to R groin changed and packed this am. Did call Dr. Bro with pos anaerobic blood cx's and he stated it was likely contaminant. Although, pt is on vanc and zosyn IV. currently. Pt has had no c/o's this shift and is pleasant. Lungs cta, s1,s2, bs x 4. VSS. Mx continues.
[2020-10-01 19:57] VITALS: BP 120/58; PULSE 67; RESP 18; TEMP 36.8; O2SAT 94
[2020-10-01 23:49] LABS: Vancomycin,Trough 19.9 ug/mL (5.0-10.0)
--- NOTE | 2020-10-01 23:50 | PC.NURSE ---
AIDAN TROUGH REPORTED TO Vince JEAN-BAPTISTE, PHARMACIST. PROCEED WITH 2720 VANCO IVPB.
[2020-10-02 04:00] VITALS: BP 133/74; PULSE 73; RESP 18; TEMP 36.8; O2SAT 98
--- NOTE | 2020-10-02 04:10 | PC.NURSE ---
PT HAS RESTED INTERMITTENTLY THIS SHIFT, A&O X 4. VITAL SIGNS STABLE, AFEBRILE. LUNGS CTAB. HEART RATE REGULAR, NO EDEMA. DRESSING TO RIGHT GROIN CHANGED EARLIER THIS SHIFT. PT TOLERATED WELL. DENIES PAIN. TOLERATING IV ABX PER EMAR. PT AMBULATES WITHOUT DIFFICULTY. CALL LIGHT WITHIN REACH. DENIES NEEDS AT THIS TIME. WILL CONTINUE TO MONITOR
[2020-10-02 05:00] VITALS: BMI 32.5
[2020-10-02 06:45] LABS: Basophils # 0.1 K/mm3 (0-0.2); Basophils % 0.4 % (0.1-2.0); Eosinophils # 0.2 K/mm3 (0.0-0.4); Eosinophils % 1.3 % (0.1-12.0); Hemoglobin 13.6 g/dL (14.1-18.0); Lymphocytes # 1.4 K/mm3 (0.7-4.5); Mean Corpuscular HGB Conc 33.2 g/dL (31.8-35.4); Mean Corpuscular Hemoglobin 29.5 pg (27.0-31.2); Mean Corpuscular Volume 88.9 fl (80-94); Mean Platelet Volume 7.3 fl (7.4-10.4); Monocytes # 0.8 K/mm3 (0.1-1.0); Monocytes % 4.6 % (1.7-9.3); Neutrophils # 14.8 K/mm3 (1.8-7.8); Neutrophils % 85.6 % (37.0-80.0); Platelet Count 381 K/mm3 (142-424); Red Blood Count 4.61 M/mm3 (4.60-6.20); Red Cell Distribution Width 12.6 % (11.5-17.5); White Blood Count 17.2 K/mm3 (4.8-10.8)
[2020-10-02 06:46] LABS: MANUAL DIFFERENTIAL MANUAL DIFFERENTIAL (MANUAL DIFF)
[2020-10-02 06:50] LABS: Anion Gap 10.2 mEq/L (5-15); Blood Urea Nitrogen 16 mg/dl (9-20); Calcium 9.2 mg/dl (8.4-10.2); Carbon Dioxide 31 mmol/L (22.0-30.0); Chloride 103 mmol/L (98-107); Creatinine Clearance Estimated 90 mL/min (50-200); Estimated Glomerular Filt Rate 45 ml/min (>60); GFR (African American) 55 ML/MIN (>60); Glucose 142 mg/dl (74-100); Potassium 4.2 mmoL/L (3.5-5.1); Sodium 140 mmol/L (136-145)
--- NOTE | 2020-10-02 07:50 | PC.NURSE ---
Assisted with dressing change to wound.
--- NOTE | 2020-10-02 08:02 | P.PN_ITS ---
Subjective Patient reports: no new complaints Progress Note: A&P (1) Abscess of right groin Status: Acute (2) Class 1 obesity Status: Chronic Assessment and Plan for All Diagnoses:: Continue dressing changes and antibiotics. Cultures pending. Patient has increased white blood cell count and some worsening renal function therefore primary service is planning on continued inpatient stay for now. Exam Vital signs and Labs for Last 24 Hours: Temp Pulse Resp BP Pulse Ox 98.3 F 73 18 133/74 98 10/02/20 04:00 10/02/20 04:00 10/02/20 04:00 10/02/20 04:00 10/02/20 04:00 Laboratory Results - last 24 hr 10/01/20 07:33: ESR 46 H 10/01/20 07:33: Sodium 140, Potassium 4.3, Chloride 106, Carbon Dioxide 29, Anion Gap 9.3, BUN 13, Creatinine 1.20, Estimated Creat Clear 128, Estimated GFR 67, Est GFR ( Amer) 82, Glucose 109 H, Calcium 9.2, Total Bilirubin 0.4, AST 26, ALT 43, Alkaline Phosphatase 138 H, C-Reactive Protein 54.8 H D, Total Protein 6.9, Albumin 3.5, Globulin 3.4 H, Albumin/Globulin Ratio 1.0 L 10/01/20 23:15: Vancomycin Trough 19.9 H 10/02/20 06:26: WBC 17.2 H D, RBC 4.61, Hgb 13.6 L, Hct 41.0 L, MCV 88.9, MCH 29.5, MCHC 33.2, RDW 12.6, Plt Count 381, MPV 7.3 L, Neut % (Auto) 85.6 H, Lymph % (Auto) 8.0 L, [place] % (Auto) 4.6, Eos % (Auto) 1.3, Baso % (Auto) 0.4, Neut # (Auto) 14.8 H, Lymph # (Auto) 1.4, [place] # (Auto) 0.8, Eos # (Auto) 0.2, Baso # (Auto) 0.1 10/02/20 06:26: Sodium 140, Potassium 4.2, Chloride 103, Carbon Dioxide 31 H, Anion Gap 10.2, BUN 16, Creatinine 1.70 H D, Estimated Creat Clear 90, Estimated GFR 45 L, Est GFR ( Amer) 55 L D, Glucose 142 H D, Calcium 9.2 I & O for Last 24 hours: Intake & Output 09/29/20 09/30/20 10/01/20 10/02/20 11:59 11:59 11:59 11:59 Intake Total 1075 / 1075 6670 / 6670 2019 900 / 900 Balance 1075 / 1075 6670 / 6670 2019 900 / 900 Weight 243 lb 1 oz 246 lb 2 oz 241 lb 5 oz 240 lb 4 oz Microbiology Reports for the Last 24 Hours: Microbiology 09/28/20 16:05 Blood Blood Culture - Preliminary 09/29/20 07:20 Groin - Abscess Gram Stain - Final 09/29/20 07:20 Groin - Abscess Abscess Culture - Preliminary - *Routine Skin Exam Comments: Markedly decreased erythema and cellulitis. Resolving induration. Wound relatively clean.
[2020-10-02 09:12] VITALS: BP 127/78; PULSE 65; RESP 19; TEMP 36.8; O2SAT 96
[2020-10-02 09:21] LABS: Lymphocytes % 11 % (10-50); Monocytes % 4 % (2-9); Neutrophils % 85 % (42-76); Platelet Estimate Normal; RBC Morphology Normal; Total Cells Counted 100
--- NOTE | 2020-10-02 10:25 | HMH.PHACONS ---
- Pharmacy Consult Date: 10/02/20 Time: 10:25 Referring provider: DR. FARRAR Reason for Consult:: VANCOMYCIN TROUGH LEVEL Allergies and ADEs:: Allergies Allergy/AdvReac Type Severity Reaction Status Date / Time No Known Allergies Allergy Verified 09/25/20 09:28 Home Medications:: Home Medications Medication Instructions Recorded Confirmed Type Doxycycline Hyclate [Doxycycline 100 mg PO Q12H 09/28/20 09/29/20 History 100mg Capsule] Height: 1.83 m Weight: 108.976 kg Laboratory Results:: Laboratory Results - last 24 hr 10/01/20 23:15: Vancomycin Trough 19.9 H 10/02/20 06:26: WBC 17.2 H D, RBC 4.61, Hgb 13.6 L, Hct 41.0 L, MCV 88.9, MCH 29.5, MCHC 33.2, RDW 12.6, Plt Count 381, MPV 7.3 L, Neut % (Auto) 85.6 H, Lymph % (Auto) 8.0 L, [place] % (Auto) 4.6, Eos % (Auto) 1.3, Baso % (Auto) 0.4, Neut # (Auto) 14.8 H, Lymph # (Auto) 1.4, [place] # (Auto) 0.8, Eos # (Auto) 0.2, Baso # (Auto) 0.1, Total Counted 100, Neutrophils % (Manual) 85 H, Lymphocytes % (Manual) 11, Monocytes % (Manual) 4, Platelet Estimate Normal, RBC Morphology Normal 10/02/20 06:26: Sodium 140, Potassium 4.2, Chloride 103, Carbon Dioxide 31 H, Anion Gap 10.2, BUN 16, Creatinine 1.70 H D, Estimated Creat Clear 90, Estimated GFR 45 L, Est GFR ( Amer) 55 L D, Glucose 142 H D, Calcium 9.2 Assessment and Plan (1) Abscess of right groin Status: Acute Category: Medical Code(s): L02.214 - Cutaneous abscess of groin (2) Class 1 obesity Status: Chronic Category: Medical Code(s): E66.9 - Obesity, unspecified - Assessment and plan all Dx Assessment and Plan for all problems:: BASED ON VANCOMYCIN TROUGH LEVEL LAST NIGHT, PATIENT RECEIVED VANCOMYCIN 2250 MG LAST NIGHT. VANCOMYCIN AND ZOSYN WERE DISCONTINUED THIS MORNING AND STARTED ON CEFEPIME.
--- NOTE | 2020-10-02 13:11 | HMH.ACPN2 ---
Internal Medicine - PN: Subj *Date: 10/02/20 *Time: 13:11 Interval history: Overall patient felt well this morning, no complaints, breathing easily. Pain at a minimum. Exam Vital signs and Labs for Last 24 Hours: Temp Pulse Resp BP Pulse Ox 98.2 F 65 19 127/78 96 10/02/20 09:12 10/02/20 09:12 10/02/20 09:12 10/02/20 09:12 10/02/20 09:12 Laboratory Results - last 24 hr 10/01/20 23:15: Vancomycin Trough 19.9 H 10/02/20 06:26: WBC 17.2 H D, RBC 4.61, Hgb 13.6 L, Hct 41.0 L, MCV 88.9, MCH 29.5, MCHC 33.2, RDW 12.6, Plt Count 381, MPV 7.3 L, Neut % (Auto) 85.6 H, Lymph % (Auto) 8.0 L, [place] % (Auto) 4.6, Eos % (Auto) 1.3, Baso % (Auto) 0.4, Neut # (Auto) 14.8 H, Lymph # (Auto) 1.4, [place] # (Auto) 0.8, Eos # (Auto) 0.2, Baso # (Auto) 0.1, Total Counted 100, Neutrophils % (Manual) 85 H, Lymphocytes % (Manual) 11, Monocytes % (Manual) 4, Platelet Estimate Normal, RBC Morphology Normal 10/02/20 06:26: Sodium 140, Potassium 4.2, Chloride 103, Carbon Dioxide 31 H, Anion Gap 10.2, BUN 16, Creatinine 1.70 H D, Estimated Creat Clear 90, Estimated GFR 45 L, Est GFR ( Amer) 55 L D, Glucose 142 H D, Calcium 9.2 I & O for Last 24 hours: Intake & Output 09/30/20 10/01/20 10/02/20 10/03/20 11:59 11:59 11:59 11:59 Intake Total 70 / 70 2019 1140 / 1140 Balance 70 / 6670 2019 1140 / 1140 Weight 246 lb 2 oz 241 lb 5 oz 240 lb 4 oz Microbiology Reports for the Last 24 Hours: Microbiology 09/29/20 07:20 Groin - Abscess - Final Not Reportable 09/29/20 07:20 Groin - Abscess - Final Not Reportable 09/29/20 07:20 Groin - Abscess - Final Not Reportable 09/29/20 07:20 Groin - Abscess - Final Not Reportable 09/29/20 07:20 Groin - Abscess - Final Not Reportable 09/29/20 07:20 Groin - Abscess Gram Stain - Final 09/29/20 07:20 Groin - Abscess Abscess Culture - Preliminary Gram Positive Cocci 09/28/20 16:05 Blood Blood Culture - Preliminary Narrative: Cardiopulmonary exam unremarkable, neurologic exam unremarkable. ENT exam unremarkable. Groin exam and surgical wound exam per surgery. No distal edema. Abdominal soft. Assessment and Plan (1) Abscess of right groin Status: Acute Category: Medical Code(s): L02.214 - Cutaneous abscess of groin (2) Class 1 obesity Status: Chronic Category: Medical Code(s): E66.9 - Obesity, unspecified (3) Acute kidney injury Status: Acute Category: Medical Code(s): N17.9 - Acute kidney failure, unspecified - Assessment and plan all Dx Assessment and Plan for all problems:: Slightly elevated creatinine and white count today. Change antibiotics to cefepime. Continue surgical dressing. Hold discharge till tomorrow, IV fluids and discontinue vancomycin to help with kidney issues.
[2020-10-02 16:00] VITALS: BP 151/74; PULSE 68; RESP 18; TEMP 36.6; O2SAT 100
[2020-10-02 20:00] VITALS: BP 151/82; PULSE 62; RESP 16; TEMP 36.9; O2SAT 99
--- NOTE | 2020-10-03 03:41 | PC.NURSE ---
pt has had no acute changes. iv patent. fluids are stopped at this time. pt requested to have them stopped related to the taste making him nauseous. pt is drinking well. one episode of vomiting. still stating some nausea. pt states this was related to iv fluids and that he is starting to feel better. dressing change was done this shift. no pain reported this shift. vss. call light in reach. will continue to monitor
[2020-10-03 04:00] VITALS: BP 126/71; PULSE 55; RESP 20; TEMP 36.7; O2SAT 98
[2020-10-03 05:00] VITALS: BMI 32.5
[2020-10-03 07:01] LABS: Basophils # 0.1 K/mm3 (0-0.2); Basophils % 0.6 % (0.1-2.0); Eosinophils # 0.2 K/mm3 (0.0-0.4); Eosinophils % 1.1 % (0.1-12.0); Hemoglobin 13.8 g/dL (14.1-18.0); Lymphocytes # 1.8 K/mm3 (0.7-4.5); Lymphocytes % 9.6 % (10-50); Mean Corpuscular HGB Conc 32.9 g/dL (31.8-35.4); Mean Corpuscular Hemoglobin 29.3 pg (27.0-31.2); Mean Corpuscular Volume 88.9 fl (80-94); Monocytes # 0.8 K/mm3 (0.1-1.0); Monocytes % 4.4 % (1.7-9.3); Neutrophils # 15.6 K/mm3 (1.8-7.8); Neutrophils % 84.3 % (37.0-80.0); Platelet Count 392 K/mm3 (142-424); Red Blood Count 4.72 M/mm3 (4.60-6.20); Red Cell Distribution Width 12.6 % (11.5-17.5); White Blood Count 18.5 K/mm3 (4.8-10.8)
[2020-10-03 07:03] LABS: MANUAL DIFFERENTIAL MANUAL DIFFERENTIAL (MANUAL DIFF)
[2020-10-03 07:08] LABS: Alanine Aminotransferase 45 U/L (12-78); Albumin Level 3.6 g/dl (3.5-5.0); Albumin/Globulin Ratio 1.1 (1.1-1.8); Alkaline Phosphatase 111 U/L (38-126); Anion Gap 11.4 mEq/L (5-15); Aspartate Amino Transferase 36 U/L (17-59); Bilirubin,Total 0.5 mg/dl (0.2-1.3); Blood Urea Nitrogen 22 mg/dl (9-20); Calcium 9.1 mg/dl (8.4-10.2); Carbon Dioxide 28 mmol/L (22.0-30.0); Chloride 104 mmol/L (98-107); Creatinine Clearance Estimated 42 mL/min (50-200); Estimated Glomerular Filt Rate 19 ml/min (>60); GFR (African American) 23 ML/MIN (>60); Globulin 3.2 g/dL (1.3-3.2); Glucose 114 mg/dl (74-100); Potassium 4.4 mmoL/L (3.5-5.1); Sodium 139 mmol/L (136-145); Total Protein,Serum 6.8 g/dl (6.3-8.2)
--- NOTE | 2020-10-03 07:58 | HMH.ACPN2 ---
Internal Medicine - PN: Subj *Date: 10/03/20 *Time: 10:45 Interval history: Mr. Ocampo has done well overnight. No fevers. Denies significant pain with right inguinal lesion. Unfortunately his labs this morning show significant worsening in his kidney function, creatinine is bumped more than 3. Declined IV fluids last night as they leave a bad taste in his mouth. Has been staying hydrated orally however. Antibiotics were switched to cefepime yesterday out of concern for the combo of vancomycin and Zosyn being a culprit and his GENARO. Patient denies shortness of breath, chest pain, nausea or vomiting. Exam Vital signs and Labs for Last 24 Hours: Temp Pulse Resp BP Pulse Ox 98.1 F 55 L 20 126/71 98 10/03/20 04:00 10/03/20 04:00 10/03/20 04:00 10/03/20 04:00 10/03/20 04:00 Laboratory Results - last 24 hr 10/02/20 06:26: Total Counted 100, Neutrophils % (Manual) 85 H, Lymphocytes % (Manual) 11, Monocytes % (Manual) 4, Platelet Estimate Normal, RBC Morphology Normal 10/03/20 06:41: WBC 18.5 H, RBC 4.72, Hgb 13.8 L, Hct 42.0, MCV 88.9, MCH 29.3, MCHC 32.9, RDW 12.6, Plt Count 392, MPV 7.0 L, Neut % (Auto) 84.3 H, Lymph % (Auto) 9.6 L, [place] % (Auto) 4.4, Eos % (Auto) 1.1, Baso % (Auto) 0.6, Neut # (Auto) 15.6 H, Lymph # (Auto) 1.8, [place] # (Auto) 0.8, Eos # (Auto) 0.2, Baso # (Auto) 0.1 10/03/20 06:41: Sodium 139, Potassium 4.4, Chloride 104, Carbon Dioxide 28, Anion Gap 11.4, BUN 22 H D, Creatinine 3.60 H D, Estimated Creat Clear 42, Estimated GFR 19 L*, Est GFR ( Amer) 23 L D, Glucose 114 H, Calcium 9.1, Total Bilirubin 0.5, AST 36 D, ALT 45, Alkaline Phosphatase 111, Total Protein 6.8, Albumin 3.6, Globulin 3.2, Albumin/Globulin Ratio 1.1 I & O for Last 24 hours: Intake & Output 09/30/20 10/01/20 10/02/20 10/03/20 23:59 23:59 23:59 23:59 Intake Total 6790 / 90 1959 960 / 2173 1213 / 1213 Balance 6789 / 6789 960 / 2173 1213 / 1213 Weight 111.64 kg 109.458 kg 108.976 kg 108.862 kg Microbiology Reports for the Last 24 Hours: Microbiology 09/29/20 07:20 Groin - Abscess - Final Not Reportable 09/29/20 07:20 Groin - Abscess - Final Not Reportable 09/29/20 07:20 Groin - Abscess - Final Not Reportable 09/29/20 07:20 Groin - Abscess - Final Not Reportable 09/29/20 07:20 Groin - Abscess - Final Not Reportable 09/29/20 07:20 Groin - Abscess Gram Stain - Final 09/29/20 07:20 Groin - Abscess Abscess Culture - Preliminary Gram Positive Cocci 09/28/20 16:05 Blood Blood Culture - Preliminary Narrative: - Constitutional no acute distress, obese - *Routine HEENT Exam Head: Present: normocephalic Eye: Present: EOMI, PERRL ENT: Present: mucous membranes moist - *Routine Neck Exam Present: supple. Absent: lymphadenopathy - *Routine Respiratory Exam Present: CTA bilaterally - *Routine Cardiovascular Exam Present: RRR - *Routine Abdominal Exam Present: soft, normoactive bowel sounds. Absent: tenderness - *Routine Exam Patient deferred: groin exam: No significant erythema. Edge of wound appears healthy and beefy. Dressing/packing with scant blood, no significant pain or warmth on palpation. - *Routine Extremities Exam Absent: cyanosis, clubbing, edema - *Routine Skin Exam Present: warm. Absent: rash - *Routine Neurological Exam Present: alert, oriented X3 Assessment and Plan (1) Abscess of right groin Status: Acute Category: Medical Code(s): L02.214 - Cutaneous abscess of groin (2) Class 1 obesity Status: Chronic Category: Medical Code(s): E66.9 - Obesity, unspecified (3) Acute kidney injury Status: Acute Category: Medical Code(s): N17.9 - Acute kidney failure, unspecified - Assessment and plan all Dx Assessment and Plan for all
[2020-10-03 08:00] VITALS: BP 143/75; PULSE 75; RESP 21; O2SAT 98
--- NOTE | 2020-10-03 08:09 | P.PN_ITS ---
Subjective Narrative: He states that he is doing okay . He reports that dressing changes are going fine . Progress Note: A&P (1) Abscess of right groin Status: Acute Assessment and plan: Overall, doing fairly well status post incision and drainage of a large right groin abscess. He remains on antibiotics that are being tailored due to renal insufficiency. Final cultures/sensitivities are pending. Moderate induration remains. Follow-up culture sensitivities Continue to tailor antibiotics as per primary service Continue dressing changes (2) Class 1 obesity Status: Chronic (3) Acute kidney injury Status: Acute Assessment and plan: Ongoing management as per primary service Exam Vital signs and Labs for Last 24 Hours: Temp Pulse Resp BP Pulse Ox 98.1 F 55 L 20 126/71 98 10/03/20 04:00 10/03/20 04:00 10/03/20 04:00 10/03/20 04:00 10/03/20 04:00 Laboratory Results - last 24 hr 10/02/20 06:26: Total Counted 100, Neutrophils % (Manual) 85 H, Lymphocytes % (Manual) 11, Monocytes % (Manual) 4, Platelet Estimate Normal, RBC Morphology Normal 10/03/20 06:41: WBC 18.5 H, RBC 4.72, Hgb 13.8 L, Hct 42.0, MCV 88.9, MCH 29.3, MCHC 32.9, RDW 12.6, Plt Count 392, MPV 7.0 L, Neut % (Auto) 84.3 H, Lymph % (Auto) 9.6 L, [place] % (Auto) 4.4, Eos % (Auto) 1.1, Baso % (Auto) 0.6, Neut # (Auto) 15.6 H, Lymph # (Auto) 1.8, [place] # (Auto) 0.8, Eos # (Auto) 0.2, Baso # (Auto) 0.1 10/03/20 06:41: Sodium 139, Potassium 4.4, Chloride 104, Carbon Dioxide 28, A nion Gap 11.4, BUN 22 H D, Creatinine 3.60 H D, Estimated Creat Clear 42, Estimated GFR 19 L*, Est GFR ( Amer) 23 L D, Glucose 114 H, Calcium 9.1, Total Bilirubin 0.5, AST 36 D, ALT 45, Alkaline Phosphatase 111, Total Protein 6.8, Albumin 3.6, Globulin 3.2, Albumin/Globulin Ratio 1.1 I & O for Last 24 hours: Intake & Output 09/30/20 10/01/20 10/02/20 10/03/20 11:59 11:59 11:59 11:59 Intake Total 6670 / 6670 2019 1140 / 1140 1693 / 1693 Balance 6670 / 6670 2019 1140 / 1140 1693 / 1693 Weight 246 lb 2 oz 241 lb 5 oz 240 lb 4 oz 240 lb Microbiology Reports for the Last 24 Hours: Microbiology 09/29/20 07:20 Groin - Abscess - Final Not Reportable 09/29/20 07:20 Groin - Abscess - Final Not Reportable 09/29/20 07:20 Groin - Abscess - Final Not Reportable 09/29/20 07:20 Groin - Abscess - Final Not Reportable 09/29/20 07:20 Groin - Abscess - Final Not Reportable 09/29/20 07:20 Groin - Abscess Gram Stain - Final 09/29/20 07:20 Groin - Abscess Abscess Culture - Preliminary Gram Positive Cocci 09/28/20 16:05 Blood Blood Culture - Preliminary - Constitutional no acute distress - *Routine Respiratory Exam Absent: respiratory distress - *Routine Cardiovascular Exam Present: bradycardia - *Routine Skin Exam Comments: Right groin wound base and margin are clean. No spreading cellulitis. Induration remains; however, it has improved.
[2020-10-03 09:16] LABS: Eosinophils % 1 % (0-3); Lymphocytes % 9 % (10-50); Monocytes % 4 % (2-9); Neutrophils % 85 % (42-76); Total Cells Counted 100
[2020-10-03 09:17] LABS: RBC Morphology Normal
[2020-10-03 09:19] LABS: Platelet Estimate Normal
[2020-10-03 16:00] VITALS: BP 144/85; PULSE 65; RESP 20; TEMP 36.8; O2SAT 96
[2020-10-03 16:50] LABS: Chloride 101 mmol/L (98-107); Sodium 136 mmol/L (136-145)
[2020-10-03 16:51] LABS: Potassium 4.1 mmoL/L (3.5-5.1)
[2020-10-03 16:54] LABS: Anion Gap 9.1 mEq/L (5-15); Blood Urea Nitrogen 25 mg/dl (9-20); Calcium 8.7 mg/dl (8.4-10.2); Carbon Dioxide 30 mmol/L (22.0-30.0); Creatinine Clearance Estimated 42 mL/min (50-200); GFR (African American) 23 ML/MIN (>60); Glucose 122 mg/dl (74-100)
[2020-10-03 17:06] LABS: Estimated Glomerular Filt Rate 19 ml/min (>60)
--- NOTE | 2020-10-03 17:17 | PC.NURSE ---
PATIENT IS A&O X4, LUNGS ARE CLEAR, PULSES EQUAL, TOLERATED DRESSING CHANGE, TOLERATED FLUID BOLUS. NO NEW CONCERNS OR NEEDS AT THIS TIME.
--- NOTE | 2020-10-03 18:45 | PC.NURSE ---
THIS RN REMOVED OLD DRESSING. DRESSING HAD LARGE AMOUNT OF SEROUSANGEOUS DRAINAGE NOTED. SOAKED GAUZE WAS PACKED INTO WOUND, COVERED WITH 4X4, SEALED WITH TAPE. PATIENT TOLERATED WELL.
[2020-10-03 20:00] VITALS: BP 131/81; PULSE 64; RESP 22; TEMP 37; O2SAT 96; O2SAT 99
--- NOTE | 2020-10-03 23:58 | PC.NURSE ---
He denies pain. DSG changed by Buster Campos RN. He has been ambulating independently to the bathroom with steady gait. Talkative with staff.
[2020-10-04 04:00] VITALS: BP 117/70; PULSE 70; RESP 28; TEMP 36.9; O2SAT 96
[2020-10-04 05:00] VITALS: BMI 32.8
[2020-10-04 07:39] LABS: Basophils # 0.1 K/mm3 (0-0.2); Basophils % 0.6 % (0.1-2.0); Eosinophils # 0.3 K/mm3 (0.0-0.4); Eosinophils % 1.6 % (0.1-12.0); Hematocrit 42.1 % (42.0-52.0); Hemoglobin 13.9 g/dL (14.1-18.0); Lymphocytes # 1.9 K/mm3 (0.7-4.5); Lymphocytes % 10.7 % (10-50); Mean Corpuscular HGB Conc 33.1 g/dL (31.8-35.4); Mean Corpuscular Hemoglobin 29.9 pg (27.0-31.2); Mean Corpuscular Volume 90.2 fl (80-94); Mean Platelet Volume 7.4 fl (7.4-10.4); Monocytes # 0.8 K/mm3 (0.1-1.0); Monocytes % 4.4 % (1.7-9.3); Neutrophils # 14.6 K/mm3 (1.8-7.8); Neutrophils % 82.7 % (37.0-80.0); Platelet Count 400 K/mm3 (142-424); Red Blood Count 4.66 M/mm3 (4.60-6.20); Red Cell Distribution Width 12.7 % (11.5-17.5); White Blood Count 17.6 K/mm3 (4.8-10.8)
[2020-10-04 07:41] LABS: MANUAL DIFFERENTIAL MANUAL DIFFERENTIAL (MANUAL DIFF)
[2020-10-04 07:47] LABS: Anion Gap 11.1 mEq/L (5-15); Blood Urea Nitrogen 27 mg/dl (9-20); Calcium 9.1 mg/dl (8.4-10.2); Carbon Dioxide 29 mmol/L (22.0-30.0); Chloride 103 mmol/L (98-107); Creatinine Clearance Estimated 37 mL/min (50-200); Estimated Glomerular Filt Rate 16 ml/min (>60); GFR (African American) 19 ML/MIN (>60); Glucose 112 mg/dl (74-100); Potassium 4.1 mmoL/L (3.5-5.1); Sodium 139 mmol/L (136-145)
[2020-10-04 08:00] VITALS: BP 125/67; PULSE 66; RESP 21; TEMP 36.3; O2SAT 98
--- NOTE | 2020-10-04 08:06 | US_ITS ---
PROCEDURE: US KIDNEY CLINICAL INDICATION: GENARO COMPARISON: No exams were available for comparison FINDINGS: The right kidney is 12.4x6.4x5.9 cm. No hydronephrosis, cortical thinning, or renal mass or perinephric fluid collection is evident. The left kidney is 12.7x6.1x6 cm. No hydronephrosis, cortical thinning, or renal mass or perinephric fluid collection is evident. Minor increased echogenicity of the kidneys noted bilaterally, may represent medical renal disease. Minimal bilateral caliceal prominence is noted. No evidence of hydronephrosis. IMPRESSION: Mildly increased echogenicity of the kidneys bilaterally, may represent medical renal disease. Dictated by: Fatmeeh Goodrich 10/04/2020 13:02 Fatemeh Goodrich in [facility] 10/04/2020 13:02
--- NOTE | 2020-10-04 08:25 | P.PN_ITS ---
Subjective Patient reports: no new complaints Progress Note: A&P (1) Abscess of right groin Status: Acute Assessment and plan: continue dressing changes abx as per primary service (2) Class 1 obesity Status: Chronic (3) Acute kidney injury Status: Acute Assessment and plan: as per primary service Exam Vital signs and Labs for Last 24 Hours: Temp Pulse Resp BP Pulse Ox 98.4 F 70 28 H 117/70 96 10/04/20 04:00 10/04/20 04:00 10/04/20 04:00 10/04/20 04:00 10/04/20 04:00 Laboratory Results - last 24 hr 10/03/20 06:41: Total Counted 100, Neutrophils % (Manual) 85 H, Lymphocytes % (Manual) 9 L, Monocytes % (Manual) 4, Eosinophils % (Manual) 1, Blast Cells % 1.0, Platelet Estimate Normal, RBC Morphology Normal 10/03/20 16:12: Sodium 136, Potassium 4.1, Chloride 101, Carbon Dioxide 30, Anion Gap 9.1, BUN 25 H, Creatinine 3.60 H, Estimated Creat Clear 42, Estimated GFR 19 L*, Est GFR ( Amer) 23 L, Glucose 122 H, Calcium 8.7 10/04/20 07:23: WBC 17.6 H, RBC 4.66, Hgb 13.9 L, Hct 42.1, MCV 90.2, MCH 29.9, MCHC 33.1, RDW 12.7, Plt Count 400, MPV 7.4, Neut % (Auto) 82.7 H, Lymph % (Auto) 10.7, [place] % (Auto) 4.4, Eos % (Auto) 1.6, Baso % (Auto) 0.6, Neut # (Aut o) 14.6 H, Lymph # (Auto) 1.9, [place] # (Auto) 0.8, Eos # (Auto) 0.3, Baso # (Auto) 0.1 10/04/20 07:23: Sodium 139, Potassium 4.1, Chloride 103, Carbon Dioxide 29, A nion Gap 11.1, BUN 27 H, Creatinine 4.20 H, Estimated Creat Clear 37, Estimated GFR 16 L*, Est GFR ( Amer) 19 L*, Glucose 112 H, Calcium 9.1 I & O for Last 24 hours: Intake & Output 10/01/20 10/02/20 10/03/20 10/04/20 11:59 11:59 11:59 11:59 Intake Total 2019 1140 / 1140 1972 / 3 3620 / 3620 Output Total 0 / 0 Balance 2019 1140 / 1140 1972 / 3 3620 / 3620 Weight 241 lb 5 oz 240 lb 4 oz 240 lb 242 lb Microbiology Reports for the Last 24 Hours: Microbiology 09/28/20 16:05 Blood Blood Culture - Final NO GROWTH AFTER 5 DAYS 09/28/20 16:05 Blood Blood Culture - Preliminary Gram Positive Cocci - Constitutional no acute distress - *Routine Respiratory Exam Absent: respiratory distress - *Routine Cardiovascular Exam Present: RRR - *Routine Skin Exam Comments: right groin induration. no spreading cellulitis.
--- NOTE | 2020-10-04 08:28 | HMH.ACPN2 ---
Internal Medicine - PN: Subj *Date: 10/04/20 *Time: 08:28 Interval history: Patient states that he feels much better, notes that his urine output has picked up over the past 24 hours and that his urine is clear. Denies abdominal pain, nausea or vomiting. Denies muscle twitches or cramps. Exam Vital signs and Labs for Last 24 Hours: Temp Pulse Resp BP Pulse Ox 98.4 F 70 28 H 117/70 96 10/04/20 04:00 10/04/20 04:00 10/04/20 04:00 10/04/20 04:00 10/04/20 04:00 Laboratory Results - last 24 hr 10/03/20 06:41: Total Counted 100, Neutrophils % (Manual) 85 H, Lymphocytes % (Manual) 9 L, Monocytes % (Manual) 4, Eosinophils % (Manual) 1, Blast Cells % 1.0, Platelet Estimate Normal, RBC Morphology Normal 10/03/20 16:12: Sodium 136, Potassium 4.1, Chloride 101, Carbon Dioxide 30, Anion Gap 9.1, BUN 25 H, Creatinine 3.60 H, Estimated Creat Clear 42, Estimated GFR 19 L*, Est GFR ( Amer) 23 L, Glucose 122 H, Calcium 8.7 10/04/20 07:23: WBC 17.6 H, RBC 4.66, Hgb 13.9 L, Hct 42.1, MCV 90.2, MCH 29.9, MCHC 33.1, RDW 12.7, Plt Count 400, MPV 7.4, Neut % (Auto) 82.7 H, Lymph % (Auto) 10.7, [place] % (Auto) 4.4, Eos % (Auto) 1.6, Baso % (Auto) 0.6, Neut # (Auto) 14.6 H, Lymph # (Auto) 1.9, [place] # (Auto) 0.8, Eos # (Auto) 0.3, Baso # (Auto) 0.1 10/04/20 07:23: Sodium 139, Potassium 4.1, Chloride 103, Carbon Dioxide 29, Anion Gap 11.1, BUN 27 H, Creatinine 4.20 H, Estimated Creat Clear 37, Estimated GFR 16 L*, Est GFR ( Amer) 19 L*, Glucose 112 H, Calcium 9.1 I & O for Last 24 hours: Intake & Output 10/01/20 10/02/20 10/03/20 10/04/20 11:59 11:59 11:59 11:59 Intake Total 2019 1140 / 1140 1972 / 3972 3620 / 3620 Output Total 0 / 0 Balance 2019 1140 / 1140 1972 / 39720 / 3620 Weight 241 lb 5 oz 240 lb 4 oz 240 lb 242 lb Microbiology Reports for the Last 24 Hours: Microbiology 09/28/20 16:05 Blood Blood Culture - Final NO GROWTH AFTER 5 DAYS 09/28/20 16:05 Blood Blood Culture - Preliminary Gram Positive Cocci - Constitutional no acute distress - *Routine HEENT Exam Head: Present: normocephalic Eye: Present: EOMI, PERRL ENT: Present: mucous membranes moist - *Routine Neck Exam Present: supple. Absent: lymphadenopathy - *Routine Respiratory Exam Present: CTA bilaterally - *Routine Cardiovascular Exam Present: RRR - *Routine Abdominal Exam Present: soft, normoactive bowel sounds. Absent: tenderness - *Routine Extremities Exam Absent: cyanosis, clubbing, edema - *Routine Skin Exam Present: warm. Absent: rash - *Routine Neurological Exam Present: alert, oriented X3 Assessment and Plan (1) Abscess of right groin Status: Acute Category: Medical Code(s): L02.214 - Cutaneous abscess of groin (2) Class 1 obesity Status: Chronic Category: Medical Code(s): E66.9 - Obesity, unspecified (3) Acute kidney injury Status: Acute Category: Medical Code(s): N17.9 - Acute kidney failure, unspecified - Assessment and plan all Dx Assessment and Plan for all problems:: Abscess is improving, see surgical notes. Acute kidney injury has not improved although seems to be plateauing with creatinine at 4.2 which is not a significant jump from 3.6 and the fact that his urine output has improved nicely is reassuring. Urine eosinophils and repeat urinalysis today, renal ultrasound, monitor creatinine this afternoon and again tomorrow morning. Electrolytes are normal.
[2020-10-04 08:59] LABS: Eosinophils % 1 % (0-3); Lymphocytes % 18 % (10-50); Monocytes % 8 % (2-9); Neutrophils % 73 % (42-76); Platelet Estimate Normal; RBC Morphology Normal; Total Cells Counted 100
[2020-10-04 09:36] LABS: Microscopic, Urine URINE MICROSCOPIC (MICROSCOPIC)
[2020-10-04 09:53] LABS: Appearance,Urine CLEAR (Clear); Bilirubin,Urine Negative (Negative); Blood, Urine 1+ (Negative); Color,Urine YELLOW (Yellow); Glucose,Urine (UA) Negative (Negative); Ketones,Urine Negative (Negative); Leukocyte Esterase,Urine TRACE (Negative); Nitrate,Urine Negative (Negative); PH,Urine 6.5 (5.0-8.5); Protein,Urine Negative (Negative); Urobilinogen,Urine 0.2 EU/dl (0.2)
[2020-10-04 15:32] VITALS: BP 144/80; PULSE 60; RESP 16; TEMP 36.9; O2SAT 99
[2020-10-04 15:33] LABS: Chloride 103 mmol/L (98-107); Potassium 4.4 mmoL/L (3.5-5.1); Sodium 139 mmol/L (136-145)
[2020-10-04 15:36] LABS: Anion Gap 12.4 mEq/L (5-15); Blood Urea Nitrogen 30 mg/dl (9-20); Carbon Dioxide 28 mmol/L (22.0-30.0); Creatinine Clearance Estimated 37 mL/min (50-200); Estimated Glomerular Filt Rate 16 ml/min (>60); GFR (African American) 19 ML/MIN (>60); Glucose 105 mg/dl (74-100)
--- NOTE | 2020-10-04 16:53 | PC.NURSE ---
Pt has been pleasant this shift. Pt has ambulated in the hallway multiple times this shift w/ steady gait and balance. Pt states he wants dressing change completed after dinner. Current dressing remains CDI. Lung sounds CTA. Active bowel sounds in all 4 quads. Pt reports he has had good urine output this shift. No other acute changes or complaints.
[2020-10-04 20:00] VITALS: BP 142/95; PULSE 85; RESP 18; TEMP 36.7; O2SAT 96
--- NOTE | 2020-10-05 03:10 | PC.NURSE ---
pt has had no acute changes. iv access lost at start of shift and new iv placed via ultrasound. patent and infusing per order. pt reports some nausea and prn med given with relief. refused dressing change this shift. states it was done late on dayshift and he will just wait till the doctor comes in the morning to change again. pt does state some pressure in lower back at times. vss. call light in reach. will continue to monitor
[2020-10-05 04:00] VITALS: BP 125/74; PULSE 53; RESP 24; TEMP 36.7; O2SAT 99
[2020-10-05 05:00] VITALS: BMI 33.5
[2020-10-05 06:49] LABS: Basophils # 0.1 K/mm3 (0-0.2); Basophils % 0.6 % (0.1-2.0); Eosinophils # 0.2 K/mm3 (0.0-0.4); Eosinophils % 1.6 % (0.1-12.0); Hematocrit 38.6 % (42.0-52.0); Hemoglobin 12.7 g/dL (14.1-18.0); Lymphocytes # 1.6 K/mm3 (0.7-4.5); Lymphocytes % 12.2 % (10-50); Mean Corpuscular HGB Conc 32.8 g/dL (31.8-35.4); Mean Corpuscular Hemoglobin 29.3 pg (27.0-31.2); Mean Corpuscular Volume 89.5 fl (80-94); Mean Platelet Volume 7.3 fl (7.4-10.4); Monocytes # 0.7 K/mm3 (0.1-1.0); Monocytes % 5.2 % (1.7-9.3); Neutrophils # 10.3 K/mm3 (1.8-7.8); Neutrophils % 80.3 % (37.0-80.0); Platelet Count 341 K/mm3 (142-424); Red Blood Count 4.32 M/mm3 (4.60-6.20); Red Cell Distribution Width 12.7 % (11.5-17.5); White Blood Count 12.9 K/mm3 (4.8-10.8)
--- NOTE | 2020-10-05 06:55 | HMH.GSPN ---
Subjective Narrative: He states that he is overall about the same . He continues to have no pain in/around his abscess site. He continues to void. He has had some loose stools and states that he is going to tell Dr. Montague and Dr. Bro about it . Progress Note: A&P (1) Abscess of right groin Status: Acute Assessment and plan: Overall, doing well status post incision and drainage. Continue dressing changes. Antibiotic therapy as per primary service. (2) Class 1 obesity Status: Chronic (3) Acute kidney injury Status: Acute Exam Vital signs and Labs for Last 24 Hours: Temp Pulse Resp BP Pulse Ox 98.0 F 53 L 24 125/74 99 10/05/20 04:00 10/05/20 04:00 10/05/20 04:00 10/05/20 04:00 10/05/20 04:00 Laboratory Results - last 24 hr 10/04/20 07:23: WBC 17.6 H, RBC 4.66, Hgb 13.9 L, Hct 42.1, MCV 90.2, MCH 29.9, MCHC 33.1, RDW 12.7, Plt Count 400, MPV 7.4, Neut % (Auto) 82.7 H, Lymph % (Auto) 10.7, [place] % (Auto) 4.4, Eos % (Auto) 1.6, Baso % (Auto) 0.6, Neut # (Auto) 14.6 H, Lymph # (Auto) 1.9, [place] # (Auto) 0.8, Eos # (Auto) 0.3, Baso # (Auto) 0.1, Total Counted 100, Neutrophils % (Manual) 73, Lymphocytes % (Manual) 18, Monocytes % (Manual) 8, Eosinophils % (Manual) 1, Platelet Estimate Normal, RBC Morphology Normal 10/04/20 07:23: Sodium 139, Potassium 4.1, Chloride 103, Carbon Dioxide 29, Anion Gap 11.1, BUN 27 H, Creatinine 4.20 H, Estimated Creat Clear 37, Estimated GFR 16 L*, Est GFR ( Amer) 19 L*, Glucose 112 H, Calcium 9.1 10/04/20 09:03: Urine Eosinophils Absent 10/04/20 09:03: Urine Color Yellow, Urine Appearance Clear, Urine pH 6.5, Ur Specific [place] 1.010, Urine Protein Negative, Urine Glucose (UA) Negative, Urine Ketones Negative, Urine Blood 1+, Urine Nitrate Negative, Urine Bilirubin Negative, Urine Urobilinogen 0.2, Ur Leukocyte Esterase Trace, Urine RBC 5-10, Urine WBC 3-5, Ur Squamous Epith Cells 3-5, Urine Bacteria None 10/04/20 15:07: Sodium 139, Potassium 4.4, Chloride 103, Carbon Dioxide 28, Anion Gap 12.4, BUN 30 H, Creatinine 4.20 H, Estimated Creat Clear 37, Estimated GFR 16 L*, Est GFR ( Amer) 19 L*, Glucose 105 H, Calcium 9.0 10/05/20 05:47: WBC 12.9 H D, RBC 4.32 L, Hgb 12.7 L, Hct 38.6 L, MCV 89.5, MCH 29.3, MCHC 32.8, RDW 12.7, Plt Count 341, MPV 7.3 L, Neut % (Auto) 80.3 H, Lymph % (Auto) 12.2, [place] % (Auto) 5.2, Eos % (Auto) 1.6, Baso % (Auto) 0.6, Neut # (Auto) 10.3 H, Lymph # (Auto) 1.6, [place] # (Auto) 0.7, Eos # (Auto) 0.2, Baso # (Auto) 0.1 I & O for Last 24 hours: Intake & Output 10/02/20 10/03/20 10/04/20 10/05/20 11:59 11:59 11:59 11:59 Intake Total 1140 / 1140 19720 / 3980 2778 / 2778 Output Total 0 / 0 Balance 1140 / 1140 19720 / 3980 2778 / 2778 Weight 240 lb 4 oz 240 lb 242 lb 248 lb Microbiology Reports for the Last 24 Hours: Microbiology 09/28/20 16:05 Blood Blood Culture - Preliminary Staphylococcus hominis - Constitutional no acute distress - *Routine Respiratory Exam Absent: respiratory distress - *Routine Cardiovascular Exam Present: RRR - *Routine Skin Exam Comments: Right groin abscess incision and drainage site improving with regard to induration. No spreading cellulitis.
[2020-10-05 06:59] LABS: Anion Gap 10.2 mEq/L (5-15); Blood Urea Nitrogen 29 mg/dl (9-20); Calcium 8.6 mg/dl (8.4-10.2); Carbon Dioxide 26 mmol/L (22.0-30.0); Chloride 109 mmol/L (98-107); Creatinine Clearance Estimated 37 mL/min (50-200); Estimated Glomerular Filt Rate 15 ml/min (>60); GFR (African American) 19 ML/MIN (>60); Glucose 101 mg/dl (74-100); Potassium 4.2 mmoL/L (3.5-5.1); Sodium 141 mmol/L (136-145)
[2020-10-05 07:21] VITALS: BP 139/68; PULSE 54; RESP 18; TEMP 36.7; O2SAT 98
--- NOTE | 2020-10-05 08:24 | HMH.ACPN2 ---
Internal Medicine - PN: Subj *Date: 10/05/20 *Time: 08:24 Interval history: Overall patient feels much better, has excellent urine output. Had one episode of soft stool but this has resolved through the night. No other pains, aches, muscle fasciculations or twitches. Exam Vital signs and Labs for Last 24 Hours: Temp Pulse Resp BP Pulse Ox 98.0 F 54 L 18 139/68 98 10/05/20 07:21 10/05/20 07:21 10/05/20 07:21 10/05/20 07:10/05/20 07:21 Laboratory Results - last 24 hr 10/04/20 07:23: Total Counted 100, Neutrophils % (Manual) 73, Lymphocytes % (Manual) 18, Monocytes % (Manual) 8, Eosinophils % (Manual) 1, Platelet Estimate Normal, RBC Morphology Normal 10/04/20 09:03: Urine Eosinophils Absent 10/04/20 09:03: Urine Color Yellow, Urine Appearance Clear, Urine pH 6.5, Ur Specific [place] 1.010, Urine Protein Negative, Urine Glucose (UA) Negative, Urine Ketones Negative, Urine Blood 1+, Urine Nitrate Negative, Urine Bilirubin Negative, Urine Urobilinogen 0.2, Ur Leukocyte Esterase Trace, Urine RBC 5-10, Urine WBC 3-5, Ur Squamous Epith Cells 3-5, Urine Bacteria None 10/04/20 15:07: Sodium 139, Potassium 4.4, Chloride 103, Carbon Dioxide 28, Anion Gap 12.4, BUN 30 H, Creatinine 4.20 H, Estimated Creat Clear 37, Estimated GFR 16 L*, Est GFR ( Amer) 19 L*, Glucose 105 H, Calcium 9.0 10/05/20 05:47: WBC 12.9 H D, RBC 4.32 L, Hgb 12.7 L, Hct 38.6 L, MCV 89.5, MCH 29.3, MCHC 32.8, RDW 12.7, Plt Count 341, MPV 7.3 L, Neut % (Auto) 80.3 H, Lymph % (Auto) 12.2, [place] % (Auto) 5.2, Eos % (Auto) 1.6, Baso % (Auto) 0.6, Neut # (Auto) 10.3 H, Lymph # (Auto) 1.6, [place] # (Auto) 0.7, Eos # (Auto) 0.2, Baso # (Auto) 0.1 10/05/20 06:11: Sodium 141, Potassium 4.2, Chloride 109 H, Carbon Dioxide 26, Anion Gap 10.2, BUN 29 H, Creatinine 4.30 H, Estimated Creat Clear 37, Estimated GFR 15 L*, Est GFR ( Amer) 19 L*, Glucose 101 H, Calcium 8.6 I & O for Last 24 hours: Intake & Output 10/02/20 10/03/20 10/04/20 10/05/20 11:59 11:59 11:59 11:59 Intake Total 1140 / 1140 1972 / 3973 3980 / 3980 3138 / 3138 Output Total 0 / 0 Balance 1140 / 1140 1972 / 3973 3980 / 3980 3138 / 3138 Weight 240 lb 4 oz 240 lb 242 lb 248 lb Microbiology Reports for the Last 24 Hours: Microbiology 09/28/20 16:05 Blood Blood Culture - Preliminary Staphylococcus hominis - Constitutional no acute distress - *Routine HEENT Exam Head: Present: normocephalic Eye: Present: EOMI, PERRL ENT: Present: mucous membranes moist - *Routine Neck Exam Present: supple. Absent: lymphadenopathy - *Routine Respiratory Exam Present: CTA bilaterally - *Routine Cardiovascular Exam Present: RRR - *Routine Abdominal Exam Present: soft, normoactive bowel sounds. Absent: tenderness - *Routine Extremities Exam Absent: cyanosis, clubbing, edema - *Routine Skin Exam Present: warm. Absent: rash - *Routine Neurological Exam Present: alert, oriented X3 Assessment and Plan (1) Abscess of right groin Status: Acute Category: Medical Code(s): L02.214 - Cutaneous abscess of groin (2) Class 1 obesity Status: Chronic Category: Medical Code(s): E66.9 - Obesity, unspecified (3) Acute kidney injury Status: Acute Category: Medical Code(s): N17.9 - Acute kidney failure, unspecified - Assessment and plan all Dx Assessment and Plan for all problems:: Creatinine yesterday and this morning has essentially stabilized. Electrolytes are normal. I am hoping this represents a plateau and we will see improvement in kidney function. Check BMP tomorrow. Probiotics for mild softening of stools in the face of his ongoing antibiotic therapy. Appreciate surgical input on abscess treatment.
--- NOTE | 2020-10-05 10:15 | PC.NURSE ---
THIS RN REMOVED OLD DRESSING, SMALL AMOUNT OF SEROUSANGEOUS DRAINAGE NOTED, THIS RN PACKED WOUND WITH WET GAUZE, COVERED WITH 4X4 GAUZE AND ABD PAD, SECURED WITH TAPE. PATIENT TOLERATED WELL.
[2020-10-05 15:43] VITALS: BP 138/64; PULSE 45; RESP 19; TEMP 36.7; O2SAT 99
--- NOTE | 2020-10-05 17:13 | PC.NURSE ---
PATIENT IS A&O X3, LUNGS ARE CLEAR, PULSES ARE EQUAL. PATIENT HAD SEVERAL EPISODES OF AN UPSET STOMACH. PATIENT BELIEVES IT IS THE LINEZOLID CAUSING IT. THIS RN REPORTED TO MD OF THE NAUSEA, NEW ORDER OF PHENEGRAN WAS PUT INTO PLACE, THIS RN ADMINISTERED ACCORDINGLY. NO OTHER CONCERNS AT THIS TIME.
[2020-10-05 20:00] VITALS: BP 135/56; PULSE 54; RESP 20; TEMP 36.7; O2SAT 99
--- NOTE | 2020-10-06 00:12 | PC.NURSE ---
Pt requested that fluids be turned down as he stated They are making me sick .. Administered Zofran as per order. Turned to 125 ml/hr
--- NOTE | 2020-10-06 03:13 | PC.NURSE ---
Pt resting comfortably in bed with eyes closed. Prior to sleeping, patient oriented times 4. Creatanine elevated yesterday, fluid increased to 150 ml/hr. Patient c/o nausea X1 and was administered and patient stated feel better . Patient was administered Linizolid ABx this shift. Will continue to monitor for any acute changes.
[2020-10-06 04:52] VITALS: BP 142/78; PULSE 54; RESP 18; TEMP 36.6
[2020-10-06 05:00] VITALS: BMI 33.1
--- NOTE | 2020-10-06 06:05 | PC.NURSE ---
Advised Dr. Cano that patient requested that fluids be turned down to 125 ml/hr. No new orders given.
--- NOTE | 2020-10-06 06:18 | P.PN_ITS ---
Subjective Patient reports: no new complaints Narrative: He states that his dressing changes are going fine . Progress Note: A&P (1) Abscess of right groin Status: Acute Assessment and plan: Continue antibiotic therapy as per primary service. Continue dressing changes. (2) Class 1 obesity Status: Chronic (3) Acute kidney injury Status: Acute Exam Vital signs and Labs for Last 24 Hours: Temp Pulse Resp BP Pulse Ox 97.9 F 54 L 18 142/78 H 99 10/06/20 04:52 10/06/20 04:52 10/06/20 04:52 10/06/20 04:52 10/05/20 20:00 Laboratory Results - last 24 hr 10/05/20 05:47: WBC 12.9 H D, RBC 4.32 L, Hgb 12.7 L, Hct 38.6 L, MCV 89.5, MCH 29.3, MCHC 32.8, RDW 12.7, Plt Count 341, MPV 7.3 L, Neut % (Auto) 80.3 H, Lymph % (Auto) 12.2, [place] % (Auto) 5.2, Eos % (Auto) 1.6, Baso % (Auto) 0.6, Neut # (Auto) 10.3 H, Lymph # (Auto) 1.6, [place] # (Auto) 0.7, Eos # (Auto) 0.2, Baso # (Auto) 0.1 10/05/20 06:11: Sodium 141, Potassium 4.2, Chloride 109 H, Carbon Dioxide 26, Anion Gap 10.2, BUN 29 H, Creatinine 4.30 H, Estimated Creat Clear 37, Estimated GFR 15 L*, Est GFR ( Amer) 19 L*, Glucose 101 H, Calcium 8.6 I & O for Last 24 hours: Intake & Output 10/03/20 10/04/20 10/05/20 10/06/20 11:59 11:59 11:59 11:59 Intake Total 1972 3980 / 3980 3138 / 3138 714 / 714 Output Total 0 / 0 0 / 0 1600 / 1600 Balance 1972 3980 / 3980 3138 / 3138 -886 / -886 Weight 240 lb 242 lb 248 lb 244 lb 7.882 oz Microbiology Reports for the Last 24 Hours: Microbiology 09/29/20 07:20 Groin - Abscess Gram Stain - Final 09/29/20 07:20 Groin - Abscess Abscess Culture - Final Gram Positive Cocci 09/28/20 16:05 Blood Blood Culture - Final Staphylococcus hominis - Constitutional no acute distress - *Routine Respiratory Exam Absent: respiratory distress - *Routine Cardiovascular Exam Present: bradycardia - *Routine Skin Exam Comments: Dressing in place. No spreading cellulitis.
[2020-10-06 07:05] LABS: Anion Gap 10.5 mEq/L (5-15); Blood Urea Nitrogen 33 mg/dl (9-20); Carbon Dioxide 27 mmol/L (22.0-30.0); Chloride 111 mmol/L (98-107); Creatinine Clearance Estimated 35 mL/min (50-200); Estimated Glomerular Filt Rate 15 ml/min (>60); GFR (African American) 18 ML/MIN (>60); Glucose 102 mg/dl (74-100); Potassium 4.5 mmoL/L (3.5-5.1); Sodium 144 mmol/L (136-145)
--- NOTE | 2020-10-06 07:29 | PC.NURSE ---
momo in lab called lani valiente rn reporting creat of 4.5. i will let know.
--- NOTE | 2020-10-06 07:41 | HMH.ACPN2 ---
Internal Medicine - PN: Subj *Date: 10/06/20 *Time: 08:55 Interval history: 40-year-old male with no acute issues overnight. Tolerating p.o. intake. Continues to have a salty flavor to all of his food while IV fluids are running. Making adequate urine. Labs reviewed this morning, creatinine still elevated, 4.5 this morning. Not a significant change from yesterday with a level of 4.3. Remains afebrile, no chest pain or shortness of breath. Surgical wound with minimal discomfort during dressing changes, otherwise no significant pain, drainage, bleeding. Daily bowel movements, no nausea or vomiting. Exam Vital signs and Labs for Last 24 Hours: Temp Pulse Resp BP Pulse Ox 97.9 F 54 L 18 142/78 H 99 10/06/20 04:52 10/06/20 04:52 10/06/20 04:52 10/06/20 04:52 10/05/20 20:00 Laboratory Results - last 24 hr 10/06/20 06:33: Sodium 144, Potassium 4.5, Chloride 111 H, Carbon Dioxide 27, Anion Gap 10.5, BUN 33 H, Creatinine 4.50 H, Estimated Creat Clear 35, Estimated GFR 15 L*, Est GFR ( Amer) 18 L*, Glucose 102 H, Calcium 9.0 I & O for Last 24 hours: Intake & Output 10/03/20 10/04/20 10/05/20 10/06/20 23:59 23:59 23:59 23:59 Intake Total 4693 / 5113 1260 / 1260 3135 / 3135 2762 / 2762 Output Total 0 / 0 300 / 1000 1575 / 1575 Balance 4693 / 5113 1260 / 1260 2835 / 2135 1187 / 1187 Weight 108.862 kg 109.769 kg 112.491 kg 110.9 kg Microbiology Reports for the Last 24 Hours: Microbiology 09/29/20 07:20 Groin - Abscess Gram Stain - Final 09/29/20 07:20 Groin - Abscess Abscess Culture - Final Gram Positive Cocci 09/28/20 16:05 Blood Blood Culture - Final Staphylococcus hominis Narrative: - Constitutional no acute distress - *Routine HEENT Exam Head: Present: normocephalic Eye: Present: EOMI, PERRL ENT: Present: mucous membranes moist - *Routine Neck Exam Present: supple. Absent: lymphadenopathy - *Routine Respiratory Exam Present: CTA bilaterally - *Routine Cardiovascular Exam Present: RRR - *Routine Abdominal Exam Present: soft, normoactive bowel sounds. No significant tenderness. Surgical incision right inguinal region with no discharge, clean dressing/packing. No surrounding erythema - *Routine Extremities Exam Absent: cyanosis, clubbing, edema - *Routine Skin Exam Present: warm. Absent: rash - *Routine Neurological Exam Present: alert, oriented X3 Assessment and Plan (1) Abscess of right groin Status: Acute Category: Medical Code(s): L02.214 - Cutaneous abscess of groin (2) Class 1 obesity Status: Chronic Category: Medical Code(s): E66.9 - Obesity, unspecified (3) Acute kidney injury Status: Acute Category: Medical Code(s): N17.9 - Acute kidney failure, unspecified - Assessment and plan all Dx Assessment and Plan for all problems:: Creatinine yesterday and this morning has essentially stabilized. Electrolytes are normal. Suspect ATN secondary to antibiotic therapy, just awaiting for tubules to open up and have improvement in creatinine. I am hoping this represents a plateau and we will see improvement in kidney function. Check BMP tomorrow. Probiotics for mild softening of stools in the face of his ongoing antibiotic therapy. Appreciate surgical input on abscess treatment.
[2020-10-06 08:00] VITALS: BP 147/87; PULSE 62; RESP 18; TEMP 36.9; O2SAT 99
--- NOTE | 2020-10-06 09:14 | HMH.ACPN ---
Internal Medicine - PN: Subj *Date: 10/06/20 *Time: 09:14 Exam Vital signs and Labs for Last 24 Hours: Temp Pulse Resp BP Pulse Ox 98.4 F 62 18 147/87 H 99 10/06/20 08:00 10/06/20 08:00 10/06/20 08:00 10/06/20 08:00 10/06/20 08:00 Laboratory Results - last 24 hr 10/06/20 06:33: Sodium 144, Potassium 4.5, Chloride 111 H, Carbon Dioxide 27, Anion Gap 10.5, BUN 33 H, Creatinine 4.50 H, Estimated Creat Clear 35, Estimated GFR 15 L*, Est GFR ( Amer) 18 L*, Glucose 102 H, Calcium 9.0 I & O for Last 24 hours: Intake & Output 10/03/20 10/04/20 10/05/20 10/06/20 23:59 23:59 23:59 23:59 Intake Total 4693 / 5113 1260 / 1260 3135 / 3135 3122 / 3122 Output Total 0 / 0 300 / 1000 1575 / 1575 Balance 4693 / 5113 1260 / 1260 2835 / 2135 1547 / 1547 Weight 108.862 kg 109.769 kg 112.491 kg 110.9 kg Microbiology Reports for the Last 24 Hours: Microbiology 09/29/20 07:20 Groin - Abscess Gram Stain - Final 09/29/20 07:20 Groin - Abscess Abscess Culture - Final Gram Positive Cocci 09/28/20 16:05 Blood Blood Culture - Final Staphylococcus hominis Assessment and Plan (1) Abscess of right groin Status: Acute Category: Medical Code(s): L02.214 - Cutaneous abscess of groin (2) Class 1 obesity Status: Chronic Category: Medical Code(s): E66.9 - Obesity, unspecified (3) Acute kidney injury Status: Acute Category: Medical Code(s): N17.9 - Acute kidney failure, unspecified The patient's infection will respond to the chosen ABx?: Yes Is the patient receiving the right drug, dose, and route?: Yes Could a more targeted ABx be ordered?: No (GRAM + COCCI, WBC DECREASED, AFEBRILE)
[2020-10-06 15:30] VITALS: BP 157/85; PULSE 56; RESP 17; TEMP 36.8; O2SAT 98
--- NOTE | 2020-10-06 17:08 | PC.NURSE ---
Addendum entered by Susan Caputo RN 10/06/20 17:57: PT DRESSING CHANGED USING BRAKE [employer]ING [employer]. AT THIS TIME. Original Note: PT HAS HAD A GOOD DAY. NO COMPLAINTS VOICED. WHEN ASKING PT TO CHANGE DRESSING HE STATES LATER WILL ASK AGAIN AFTER SUPPER. PT HAS AMBULATED T/O HALLS THIS SHIFT. VSS. WILL CONT. TO MONITOR.
[2020-10-06 19:59] VITALS: BP 123/57; PULSE 62; RESP 16; TEMP 36.9; O2SAT 99
[2020-10-07 03:48] VITALS: BP 153/82; PULSE 50; RESP 16; TEMP 36.9; O2SAT 97
--- NOTE | 2020-10-07 04:21 | PC.NURSE ---
Patient resting comfortably in bed. Patient did not c/o of nausea or pain throughout this shift. Patient oriented times 4. Patient administered ABx times 1. Will continue to monitor for any acute changes.
[2020-10-07 04:55] VITALS: BMI 33.2
[2020-10-07 07:21] LABS: Anion Gap 8.7 mEq/L (5-15); Blood Urea Nitrogen 38 mg/dl (9-20); Carbon Dioxide 28 mmol/L (22.0-30.0); Chloride 110 mmol/L (98-107); Creatinine Clearance Estimated 37 mL/min (50-200); Estimated Glomerular Filt Rate 16 ml/min (>60); GFR (African American) 19 ML/MIN (>60); Glucose 104 mg/dl (74-100); Potassium 4.7 mmoL/L (3.5-5.1); Sodium 142 mmol/L (136-145)
[2020-10-07 07:36] VITALS: BP 130/63; PULSE 47; RESP 16; TEMP 36.9; O2SAT 98
[2020-10-07 08:17] LABS: Basophils # 0.1 K/mm3 (0-0.2); Basophils % 0.9 % (0.1-2.0); Eosinophils # 0.3 K/mm3 (0.0-0.4); Eosinophils % 2.4 % (0.1-12.0); Hematocrit 37.5 % (42.0-52.0); Hemoglobin 12.1 g/dL (14.1-18.0); Lymphocytes % 16.2 % (10-50); Mean Corpuscular HGB Conc 32.1 g/dL (31.8-35.4); Mean Corpuscular Hemoglobin 29.7 pg (27.0-31.2); Mean Corpuscular Volume 92.5 fl (80-94); Mean Platelet Volume 7.3 fl (7.4-10.4); Monocytes # 0.7 K/mm3 (0.1-1.0); Monocytes % 5.4 % (1.7-9.3); Neutrophils # 9.2 K/mm3 (1.8-7.8); Neutrophils % 75.1 % (37.0-80.0); Platelet Count 329 K/mm3 (142-424); Red Blood Count 4.05 M/mm3 (4.60-6.20); Red Cell Distribution Width 12.4 % (11.5-17.5); White Blood Count 12.3 K/mm3 (4.8-10.8)
--- NOTE | 2020-10-07 08:19 | HMH.ACPN2 ---
Internal Medicine - PN: Subj *Date: 10/07/20 *Time: 08:19 Interval history: Overall feels good, no complaints except for some taste alterations with IV fluids. Remains with good urine output Exam Vital signs and Labs for Last 24 Hours: Temp Pulse Resp BP Pulse Ox 98.4 F 47 L 16 130/63 98 10/07/20 07:36 10/07/20 07:36 10/07/20 07:36 10/07/20 07:36 10/07/20 07:36 Laboratory Results - last 24 hr 10/07/20 06:46: WBC 12.3 H, RBC 4.05 L, Hgb 12.1 L, Hct 37.5 L, MCV 92.5, MCH 29.7, MCHC 32.1, RDW 12.4, Plt Count 329, MPV 7.3 L, Neut % (Auto) 75.1, Lymph % (Auto) 16.2, [place] % (Auto) 5.4, Eos % (Auto) 2.4, Baso % (Auto) 0.9, Neut # (Auto) 9.2 H, Lymph # (Auto) 2.0, [place] # (Auto) 0.7, Eos # (Auto) 0.3, Baso # (Auto) 0.1 10/07/20 06:46: Sodium 142, Potassium 4.7, Chloride 110 H, Carbon Dioxide 28, Anion Gap 8.7, BUN 38 H, Creatinine 4.20 H, Estimated Creat Clear 37, Estimated GFR 16 L*, Est GFR ( Amer) 19 L*, Glucose 104 H, Calcium 9.0 I & O for Last 24 hours: Intake & Output 10/04/20 10/05/20 10/06/20 10/07/20 11:59 11:59 11:59 11:59 Intake Total 3980 / 3980 3138 / 3138 3599 / 3599 2940 / 2940 Output Total 0 / 0 1875 / 1875 Balance 3980 / 3980 3138 / 3138 1724 / 1724 2940 / 2940 Weight 242 lb 248 lb 244 lb 7.882 oz 245 lb 4 oz - Constitutional no acute distress - *Routine HEENT Exam Head: Present: normocephalic Eye: Present: EOMI, PERRL ENT: Present: mucous membranes moist - *Routine Neck Exam Present: supple. Absent: lymphadenopathy - *Routine Respiratory Exam Present: CTA bilaterally - *Routine Cardiovascular Exam Present: RRR - *Routine Abdominal Exam Present: soft, normoactive bowel sounds. Absent: tenderness - *Routine Extremities Exam Absent: cyanosis, clubbing, edema Comments: Surgical wound exam per surgery - *Routine Skin Exam Present: warm. Absent: rash - *Routine Neurological Exam Present: alert, oriented X3 Assessment and Plan (1) Abscess of right groin Status: Acute Category: Medical Code(s): L02.214 - Cutaneous abscess of groin (2) Class 1 obesity Status: Chronic Category: Medical Code(s): E66.9 - Obesity, unspecified (3) Acute kidney injury Status: Acute Category: Medical Code(s): N17.9 - Acute kidney failure, unspecified - Assessment and plan all Dx Assessment and Plan for all problems:: Improving. Creatinine has slightly improved today. Good urine output. Adjust fluids based on patient's taste issues to lactated Ringer's, hold during meals, continue otherwise with maintenance fluids. Hopeful discharge tomorrow if creatinine improves suitably.
--- NOTE | 2020-10-07 10:32 | P.PN_ITS ---
Subjective Patient reports: no new complaints Progress Note: A&P (1) Abscess of right groin Status: Acute Assessment and plan: Overall, doing well (with regard to wound/infection) status post incision and drainage. Continue dressing changes (2) Class 1 obesity Status: Chronic (3) Acute kidney injury Status: Acute Exam Vital signs and Labs for Last 24 Hours: Temp Pulse Resp BP Pulse Ox 98.4 F 47 L 16 130/63 98 10/07/20 07:36 10/07/20 07:36 10/07/20 07:36 10/07/20 07:36 10/07/20 07:36 Laboratory Results - last 24 hr 10/07/20 06:46: WBC 12.3 H, RBC 4.05 L, Hgb 12.1 L, Hct 37.5 L, MCV 92.5, MCH 29.7, MCHC 32.1, RDW 12.4, Plt Count 329, MPV 7.3 L, Neut % (Auto) 75.1, Lymph % (Auto) 16.2, [place] % (Auto) 5.4, Eos % (Auto) 2.4, Baso % (Auto) 0.9, Neut # (Auto) 9.2 H, Lymph # (Auto) 2.0, [place] # (Auto) 0.7, Eos # (Auto) 0.3, Baso # (Auto) 0.1 10/07/20 06:46: Sodium 142, Potassium 4.7, Chloride 110 H, Carbon Dioxide 28, Anion Gap 8.7, BUN 38 H, Creatinine 4.20 H, Estimated Creat Clear 37, Estimated GFR 16 L*, Est GFR ( Amer) 19 L*, Glucose 104 H, Calcium 9.0 I & O for Last 24 hours: Intake & Output 10/04/20 10/05/20 10/06/20 10/07/20 11:59 11:59 11:59 11:59 Intake Total 3980 / 3980 3138 / 3138 3599 / 3599 2940 / 2940 Output Total 0 / 0 1875 / 1875 Balance 3980 / 3980 3138 / 3138 1724 / 1724 2940 / 2940 Weight 242 lb 248 lb 244 lb 7.882 oz 245 lb 4 oz - Constitutional no acute distress - *Routine Respiratory Exam Absent: respiratory distress - *Routine Cardiovascular Exam Present: bradycardia - *Routine Skin Exam Comments: Right groin wound packed. No spreading cellulitis.
[2020-10-07 15:02] VITALS: BP 165/80; PULSE 48; RESP 18; TEMP 36.9; O2SAT 99
--- NOTE | 2020-10-07 15:27 | PC.NURSE ---
IVF switched to LR @ 150 mls/hr this shift. IVF were turned off around lunch time, w/ 's approval. Pt still reports that he was nauseous and that he had a salt water taste in the back of his throat. IV zofran given once w/ reported relief. He is independent w/ ADL's. Remains on room air. Denies pain. Is currently sitting up in bed. Requests dressing changed to be done later this afternoon. Call edy w/in reach.
[2020-10-07 20:00] VITALS: BP 137/84; PULSE 48; RESP 15; TEMP 36.9; O2SAT 99
[2020-10-08 03:42] VITALS: BP 173/73; PULSE 48; RESP 16; TEMP 36.8; O2SAT 98
--- NOTE | 2020-10-08 03:46 | PC.NURSE ---
No acute changes. Pt has slept well this shift. Has not c/o any pain. Pt did c/o nausea x1 this shift. Medicated per jul. DSG changed per order early in shift. Pt tolerated well. has been bradycardic this shift. Other VSS. Lungs CTA. BS active. No other concerns. Call light within reach. Will continue to monitor.
[2020-10-08 04:59] VITALS: BMI 33.1
[2020-10-08 07:08] LABS: Anion Gap 10.4 mEq/L (5-15); Blood Urea Nitrogen 35 mg/dl (9-20); Calcium 9.2 mg/dl (8.4-10.2); Carbon Dioxide 28 mmol/L (22.0-30.0); Chloride 108 mmol/L (98-107); Creatinine Clearance Estimated 41 mL/min (50-200); Estimated Glomerular Filt Rate 18 ml/min (>60); GFR (African American) 22 ML/MIN (>60); Glucose 106 mg/dl (74-100); Potassium 4.4 mmoL/L (3.5-5.1); Sodium 142 mmol/L (136-145)
[2020-10-08 07:39] VITALS: BP 150/88; PULSE 55; RESP 20; TEMP 36.9; O2SAT 98
--- NOTE | 2020-10-08 08:55 | HMH.DCSUM ---
General - General Admission date:: 09/28/20 Discharge date: 10/08/20 HPI HPI: 40 year old male with no significant medical history presented to PCP office to establish care for ED FU on right groin abscess. Reports onset of right groin pain approx 1 weeks ago. States it felt like it was deep like on the bone. In the following days developed redness and swelling of right groin. Seen in the ED on 09/25, UA + blood, otherwise normal, extremity US showed mild tissue swelling no abscess. He was started on doxy and advised to FU with PCP if symptoms worsened. Today, patient reports it keeps getting bigger. + tenderness and pain with ambulation. + erythema. + fevers, states about 101. Denies any loss of appetite, nausea or vomiting. Found to have large approx 8 cm erythematous, warm induration on right groin extending down thigh c/w abscess. Admitted for CT scan, IV antibiotics and surgical consultation. Hospital Course Hospital Course: Patient was admitted, placed on vancomycin and Zosyn originally. Did well with this originally, and abscess was debrided by surgery-appreciate consultation and procedures. However patient's creatinine bumped after a couple of days of ministration with antibiotics and this was changed to cefepime and Zyvox. Unfortunately he did develop acute kidney injury-probable ATN from the antibiotic mixture and he was treated with fluids and obviously changing antibiotics as noted. He remained stable with no electrolyte disturbances, no cardiac dysrhythmias and excellent urine output throughout the stay, creatinine eventually plateaued and peaked at 4.3. This morning has come down to 3.8. Patient continued to have good urine output, good electrolyte balance and feels great. He wishes to go home and understands need to come back tomorrow for electrolyte monitoring and push p.o. fluids. He will be discharged home on Omnicef and Zyvox. Labs tomorrow, follow-up in our office Friday for reevaluation. Objective Vital signs: Temp Pulse Resp BP Pulse Ox 98.4 F 55 L 20 150/88 H 98 10/08/20 07:39 10/08/20 07:39 10/08/20 07:39 10/08/20 07:39 10/08/20 07:39 no acute distress - *Routine HEENT Exam Head: Present: normocephalic Eye: Present: EOMI, PERRL ENT: Present: mucous membranes moist - *Routine Neck Exam Present: supple - *Routine Respiratory Exam Present: CTA bilaterally - *Routine Cardiovascular Exam Present: RRR - *Routine Abdominal Exam Present: soft, normoactive bowel sounds. Absent: tenderness - *Routine Extremities Exam Absent: cyanosis, clubbing, edema - *Routine Skin Exam Present: warm. Absent: rash Comments: Abscess debridement site looks great, clean edges. Please see nurses documentation and surgery notes for details - Detailed Eye Exam Eyelids: Bilateral normal inspection Results Labs on day of discharge: Labs from last 24 hours 10/08/20 06:42 Sodium 142 Potassium 4.4 Chloride 108 H Carbon Dioxide 28 Anion Gap 10.4 BUN 35 H Creatinine 3.80 H Estimated Creat Clear 41 Estimated GFR 18 L* Est GFR ( Amer) 22 L Glucose 106 H Calcium 9.2 DS: Diagnosis - Discharge Diagnosis (1) Abscess of right groin Status: Resolved (2) Class 1 obesity Status: Chronic (3) Acute kidney injury Status: Acute Discharge Plan - Patient Discharge Instructions ACTIVITY: Continue current activity DIET: continue same diet Patient Instructions: DI for Incision and Drainage of a Skin Abscess, DI for Surgical Site Infection, DI for Skin Abscess - Follow up Plan Follow up with: Lui Cano MD [Staff Physician] - 1 week Maureen Gonzalez APRN [Nurse Practitioner] - 10/10/20 10:00 am Disposition: Home, Self-Care Condition at discharge:: Improved Home Medications: Home Medications Medication Instructions Recorded Confirmed Type Doxycycline Hyclate [Doxycycline 100 mg PO Q12H 09/28/20 09/29/20 History 100mg Caps
--- NOTE | 2020-10-08 10:23 | PC.NURSE ---
Lungs CTA. HR regular. Abdomen soft, non-tender w/ active BS in all quads. Dressing to (R) groing c/d/i. Pulses present and equal. Cap refill <3 sec. Reviewed DC packet w/ pt. Verbalized understanding. Outpt order form sent w/ pt for labs to be drawn tomorrow w/ MD signature. Follow up appointment made w Dr. Montague, pt will need to call Dr. Cano's office to make appointment during business hours (phone# provided). Dr Montague verbalized to review dressing changes w/ pt prior to DC and to have him do these if he feels comfortable. Reviewed wet to dry dressing change instructions, pt demonstrated appropriately. No concerns or questions.
--- NOTE | 2020-10-08 16:45 | PC.NURSE ---
Pt home medication of Doxycycline was left following discharge. pt was started on [address] Montague ok to dispose of meds left by pt as he no longer needs them.
== END 2020-10-08 09:20 | disposition home or self-care (01) | DRG 579 ==
PROVIDERS: Internal Medicine Adolescent Medicine; Nurse Practitioner Family; Surgery; Admitting Provider Internal Medicine Adolescent Medicine; PCP Internal Medicine Adolescent Medicine; Visit Provider Internal Medicine Adolescent Medicine
PROC: 0J9C0ZZ Drainage of Pelvic Region Subcutaneous Tissue and Fascia, Open Approach (ICD-10-PCS; principal; 2020-09-29 07:00)
DX: L02.214 Cutaneous abscess of groin (principal); N17.0 Acute kidney failure with tubular necrosis; E66.9 Obesity, unspecified; Z68.33 Body mass index [BMI] 33.0-33.9, adult; T36.95XA Adverse effect of unspecified systemic antibiotic, initial encounter
CPT/HCPCS: 10060; 36415; 74177; 76770; 76882; 80048; 80053; 80202; 81001; 81003; 85007; 85025; 85651; 86140; 87040; 87070; 87075; 87077; 87086; 87186; 87205; 87491; 87591; 99212; G0463; J0692; J2020; J2405; J2543; J3370; Q9967; U0003

== ENCOUNTER → 2020-10-09 14:26 | Outpatient (CLI) | payer MEDICAID, SELFPAY ==
[2020-10-09 15:55] LABS: Anion Gap 13.9 mEq/L (5-15); Blood Urea Nitrogen 43 mg/dl (9-20); Calcium 9.6 mg/dl (8.4-10.2); Carbon Dioxide 26 mmol/L (22.0-30.0); Chloride 105 mmol/L (98-107); Estimated Glomerular Filt Rate 20 ml/min (>60); GFR (African American) 25 ML/MIN (>60); Glucose 119 mg/dl (74-100); Potassium 4.9 mmoL/L (3.5-5.1); Sodium 140 mmol/L (136-145)
== END ==
PROVIDERS: Visit Provider Internal Medicine Adolescent Medicine
DX: N17.9 Acute kidney failure, unspecified (principal)
CPT/HCPCS: 36415; 80048

== ENCOUNTER → 2020-10-11 14:56 | Outpatient (CLI) | payer MEDICAID, SELFPAY ==
[2020-10-11 15:13] LABS: Basophils # 0.1 K/mm3 (0-0.2); Basophils % 0.6 % (0.1-2.0); Eosinophils # 0.3 K/mm3 (0.0-0.4); Eosinophils % 2.1 % (0.1-12.0); Hematocrit 42.6 % (42.0-52.0); Hemoglobin 14.4 g/dL (14.1-18.0); Lymphocytes # 2.2 K/mm3 (0.7-4.5); Lymphocytes % 17.8 % (10-50); Mean Corpuscular HGB Conc 33.7 g/dL (31.8-35.4); Mean Corpuscular Hemoglobin 29.8 pg (27.0-31.2); Mean Corpuscular Volume 88.2 fl (80-94); Mean Platelet Volume 7.7 fl (7.4-10.4); Monocytes # 0.6 K/mm3 (0.1-1.0); Monocytes % 4.8 % (1.7-9.3); Neutrophils # 9.1 K/mm3 (1.8-7.8); Neutrophils % 74.6 % (37.0-80.0); Platelet Count 397 K/mm3 (142-424); Red Blood Count 4.83 M/mm3 (4.60-6.20); Red Cell Distribution Width 12.8 % (11.5-17.5); White Blood Count 12.2 K/mm3 (4.8-10.8)
[2020-10-11 16:05] LABS: Alanine Aminotransferase 116 U/L (12-78); Albumin Level 4.5 g/dl (3.5-5.0); Albumin/Globulin Ratio 1.6 (1.1-1.8); Alkaline Phosphatase 100 U/L (38-126); Anion Gap 16.8 mEq/L (5-15); Aspartate Amino Transferase 59 U/L (17-59); Bilirubin,Total 0.6 mg/dl (0.2-1.3); Blood Urea Nitrogen 45 mg/dl (9-20); Calcium 9.7 mg/dl (8.4-10.2); Carbon Dioxide 26 mmol/L (22.0-30.0); Chloride 101 mmol/L (98-107); Estimated Glomerular Filt Rate 23 ml/min (>60); GFR (African American) 28 ML/MIN (>60); Globulin 2.9 g/dL (1.3-3.2); Glucose 94 mg/dl (74-100); Potassium 4.8 mmoL/L (3.5-5.1); Sodium 139 mmol/L (136-145); Total Protein,Serum 7.4 g/dl (6.3-8.2)
== END ==
PROVIDERS: Visit Provider Nurse Practitioner Family
DX: L02.91 Cutaneous abscess, unspecified (principal); N17.9 Acute kidney failure, unspecified
CPT/HCPCS: 36415; 80053; 85025

== ENCOUNTER → 2020-10-13 09:06 | Outpatient (CLI) | payer MEDICAID, SELFPAY ==
[2020-10-13 09:34] LABS: Basophils # 0.1 K/mm3 (0-0.2); Basophils % 0.7 % (0.1-2.0); Eosinophils # 0.3 K/mm3 (0.0-0.4); Eosinophils % 2.6 % (0.1-12.0); Hematocrit 41.5 % (42.0-52.0); Hemoglobin 13.8 g/dL (14.1-18.0); Lymphocytes # 1.7 K/mm3 (0.7-4.5); Mean Corpuscular HGB Conc 33.3 g/dL (31.8-35.4); Mean Corpuscular Hemoglobin 29.6 pg (27.0-31.2); Mean Corpuscular Volume 88.8 fl (80-94); Mean Platelet Volume 7.6 fl (7.4-10.4); Monocytes # 0.5 K/mm3 (0.1-1.0); Neutrophils # 8.1 K/mm3 (1.8-7.8); Neutrophils % 75.7 % (37.0-80.0); Platelet Count 311 K/mm3 (142-424); Red Blood Count 4.67 M/mm3 (4.60-6.20); White Blood Count 10.7 K/mm3 (4.8-10.8)
[2020-10-13 09:53] LABS: Alanine Aminotransferase 91 U/L (12-78); Albumin Level 4.4 g/dl (3.5-5.0); Albumin/Globulin Ratio 1.6 (1.1-1.8); Alkaline Phosphatase 98 U/L (38-126); Anion Gap 15.7 mEq/L (5-15); Aspartate Amino Transferase 37 U/L (17-59); Bilirubin,Total 0.6 mg/dl (0.2-1.3); Blood Urea Nitrogen 40 mg/dl (9-20); Calcium 9.3 mg/dl (8.4-10.2); Carbon Dioxide 24 mmol/L (22.0-30.0); Chloride 104 mmol/L (98-107); Estimated Glomerular Filt Rate 29 ml/min (>60); GFR (African American) 35 ML/MIN (>60); Globulin 2.8 g/dL (1.3-3.2); Glucose 112 mg/dl (74-100); Potassium 4.7 mmoL/L (3.5-5.1); Sodium 139 mmol/L (136-145); Total Protein,Serum 7.2 g/dl (6.3-8.2)
== END ==
PROVIDERS: Visit Provider Nurse Practitioner Family
DX: N17.9 Acute kidney failure, unspecified (principal)
CPT/HCPCS: 36415; 80053; 85025

== ENCOUNTER → 2020-10-18 10:16 | Outpatient (CLI) | payer MEDICAID, SELFPAY ==
[2020-10-18 10:58] LABS: Basophils # 0.1 K/mm3 (0-0.2); Eosinophils # 0.5 K/mm3 (0.0-0.4); Eosinophils % 5.3 % (0.1-12.0); Hematocrit 38.4 % (42.0-52.0); Hemoglobin 13.1 g/dL (14.1-18.0); Lymphocytes # 2.3 K/mm3 (0.7-4.5); Lymphocytes % 22.7 % (10-50); Mean Corpuscular Hemoglobin 29.6 pg (27.0-31.2); Mean Corpuscular Volume 87.1 fl (80-94); Mean Platelet Volume 7.5 fl (7.4-10.4); Monocytes # 0.6 K/mm3 (0.1-1.0); Monocytes % 5.7 % (1.7-9.3); Neutrophils # 6.6 K/mm3 (1.8-7.8); Neutrophils % 65.3 % (37.0-80.0); Platelet Count 244 K/mm3 (142-424); Red Blood Count 4.41 M/mm3 (4.60-6.20); Red Cell Distribution Width 13.3 % (11.5-17.5); White Blood Count 10.1 K/mm3 (4.8-10.8)
[2020-10-18 11:26] LABS: Chloride 105 mmol/L (98-107); Potassium 4.3 mmoL/L (3.5-5.1); Sodium 141 mmol/L (136-145)
[2020-10-18 11:29] LABS: Alanine Aminotransferase 40 U/L (12-78); Albumin Level 4.5 g/dl (3.5-5.0); Albumin/Globulin Ratio 1.6 (1.1-1.8); Alkaline Phosphatase 104 U/L (38-126); Anion Gap 17.3 mEq/L (5-15); Aspartate Amino Transferase 27 U/L (17-59); Bilirubin,Total 0.5 mg/dl (0.2-1.3); Blood Urea Nitrogen 23 mg/dl (9-20); Carbon Dioxide 23 mmol/L (22.0-30.0); Estimated Glomerular Filt Rate 42 ml/min (>60); GFR (African American) 51 ML/MIN (>60); Globulin 2.9 g/dL (1.3-3.2); Total Protein,Serum 7.4 g/dl (6.3-8.2)
[2020-10-18 11:30] LABS: Calcium 9.3 mg/dl (8.4-10.2); Glucose 105 mg/dl (74-100)
== END ==
PROVIDERS: Visit Provider Internal Medicine Adolescent Medicine
DX: L02.214 Cutaneous abscess of groin (principal)
CPT/HCPCS: 36415; 80053; 85025

== ENCOUNTER → 2020-11-01 09:45 | Outpatient (CLI) | payer MEDICAID, SELFPAY ==
[2020-11-01 10:19] LABS: Basophils # 0.1 K/mm3 (0-0.2); Basophils % 1.1 % (0.1-2.0); Eosinophils # 0.3 K/mm3 (0.0-0.4); Eosinophils % 4.2 % (0.1-12.0); Hematocrit 35.9 % (42.0-52.0); Hemoglobin 12.6 g/dL (14.1-18.0); Lymphocytes # 2.5 K/mm3 (0.7-4.5); Lymphocytes % 33.2 % (10-50); Mean Corpuscular HGB Conc 35.1 g/dL (31.8-35.4); Mean Corpuscular Hemoglobin 30.2 pg (27.0-31.2); Mean Corpuscular Volume 86.1 fl (80-94); Mean Platelet Volume 7.4 fl (7.4-10.4); Monocytes # 0.4 K/mm3 (0.1-1.0); Monocytes % 4.9 % (1.7-9.3); Neutrophils # 4.3 K/mm3 (1.8-7.8); Neutrophils % 56.6 % (37.0-80.0); Platelet Count 218 K/mm3 (142-424); Red Blood Count 4.17 M/mm3 (4.60-6.20); Red Cell Distribution Width 14.3 % (11.5-17.5); White Blood Count 7.6 K/mm3 (4.8-10.8)
[2020-11-01 10:51] LABS: Anion Gap 11.2 mEq/L (5-15); Blood Urea Nitrogen 13 mg/dl (9-20); Calcium 9.2 mg/dl (8.4-10.2); Carbon Dioxide 27 mmol/L (22.0-30.0); Chloride 106 mmol/L (98-107); Estimated Glomerular Filt Rate 56 ml/min (>60); GFR (African American) 68 ML/MIN (>60); Glucose 116 mg/dl (74-100); Potassium 4.2 mmoL/L (3.5-5.1); Sodium 140 mmol/L (136-145)
== END ==
PROVIDERS: Visit Provider Nurse Practitioner Family
DX: L02.214 Cutaneous abscess of groin (principal); N17.9 Acute kidney failure, unspecified
CPT/HCPCS: 36415; 80048; 85025